=== PATIENT | female | born 1950 | race Caucasian/White ===

== ENCOUNTER 2017-04-17 07:17 | Day surgery (SDC) | payer MEDICAID ==
[2017-04-17 08:20] VITALS: BMI 26.7
[2017-04-17] MEDS ORDERED: Propofol 10 mg/ml Inj (20 ML) ONE (09:51)
[2017-04-17] MEDS ORDERED: Lactated Ringer's 500 ML IV ONE (09:52)
[2017-04-17 10:00] VITALS: O2SAT 100
[2017-04-17 11:56] VITALS: TEMP 97.3
[2017-04-17 12:04] VITALS: BP 147/60; PULSE 59; RESP 18
== END 2017-04-17 11:30 | disposition home or self-care (01) ==
LOC: C.ENDO 07:17
PROVIDERS: ATTEND Internal Medicine Gastroenterology
DX: K63.5 Polyp of colon (principal); K57.90 Diverticulosis of intestine, part unspecified, without perforation or abscess without bleeding; K64.8 Other hemorrhoids
CPT/HCPCS: 45388; 88305; J2704; J7120

== ENCOUNTER 2018-02-10 01:59 | Inpatient (IN) | payer MEDICAID ==
[2018-02-10 02:10] VITALS: BMI 31.8
[2018-02-10] MEDS ORDERED: Aspirin 325 mg EC Tablets PO STA (02:10)
--- NOTE | 2018-02-10 02:10 | C.PDOC ---
History Of Present Illness The patient is brought to the ED by ambulance for evaluation of mid-sternal chest pain which had sudden onset around 1 hour prior to arrival. Patient was given 974mg Aspirin and three Nitroglycerin sprays in field with some improvement. Patient states pain is non-radiating and denies fever, chills, anxiety. Time Seen by Provider: 02/10/18 02:09 History/Exam Limitations: no limitations Onset/Duration Of Symptoms: Mins (60), Sudden Onset Current Symptoms Are (Timing): Still Present Severity: Moderate Pain Scale Rating Of: 4 Quality: Dull, Aching, "Pain" Associated Symptoms: denies: Nausea Modifying Factors: None Exacerbating Factors: None Alleviating Factors: None Recent travel outside of the [place]: No Additional History Per: Patient, Family Past Medical History Reviewed: Historical Data, Nursing Documentation, Vital Signs Vital Signs: Last Vital Signs Temp 97.6 F 02/10/18 02:08 Pulse 59 L 02/10/18 02:24 Resp 18 02/10/18 02:09 BP 145/75 02/10/18 02:24 Pulse Ox 97 02/10/18 03:55 - Medical History PMH: Depression, HTN, Hyperthyroidism, TIA (2009 ) Denies: Chronic Kidney Disease Surgical History: No Surg Hx Family History: States: No Known Family Hx - Social History Hx Alcohol Use: No Hx Substance Use: No - Immunization History Hx Tetanus Toxoid Vaccination: No Hx Influenza Vaccination: No Hx Pneumococcal Vaccination: No Review Of Systems Constitutional: Negative for: Fever, Chills Cardiovascular: Positive for: Chest Pain (mid-sternal ) Respiratory: Negative for: Cough, Shortness of Breath Gastrointestinal: Negative for: Nausea, Vomiting, Abdominal Pain, Diarrhea Skin: Negative for: Rash, Lesions, Jaundice, Bruising Neurological: Negative for: Weakness, Numbness Psych: Negative for: Anxiety Physical Exam - Physical Exam Appears: Non-toxic, No Acute Distress Skin: Warm, Dry Head: Normacephalic Eye(s): bilateral: Normal Inspection Oral Mucosa: Moist Neck: Supple Chest: Symmetrical, No Deformity, No Tenderness Cardiovascular: Rhythm Regular, No Murmur Respiratory: No Rales, No Rhonchi, No Wheezing Gastrointestinal/Abdominal: Soft, Tenderness, No Distention, No Guarding Back: Normal Inspection Extremity: Normal ROM, Capillary Refill (less than 2 seconds ) Extremity: Bilateral: Atraumatic Pulses: Left Dorsalis Pedis: Normal, Right Dorsalis Pedis: Normal Neurological/Psych: Oriented x3 Gait: Steady ED Course And Treatment - Laboratory Results Result Diagrams: 02/10/18 02:33 18 02:33 ECG: Interpreted By Me, Viewed By Me ECG Rhythm: Sinus Rhythm (56), Nonspecific Changes O2 Sat by Pulse Oximetry: 97 (on RA ) Pulse Ox Interpretation: Normal - Radiology CXR: Interpreted by Me, Viewed By Me CXR Interpretation: No: Infiltrates, Fracture, Pnemothorax Progress Note: Bloodwork, urinalysis, CT Abdomen/Pelvis, CXR and EKG ordered and reviewed. Aspirin PO administered. Disposition Discussed With Dr.: Nain Golden Comment: accepted the pt on his service and took over the care at 6:15 AM Doctor Will See Patient In The: ED Counseled Patient/Family Regarding: Studies Performed, Diagnosis - Disposition Disposition: HOSPITALIZED Disposition Time: 02:10 Condition: FAIR - POA Present On Arrival: Poor Glycemic Control - Clinical Impression Clinical Impression: Chest pain - Scribe Statement The provider has reviewed the documentation as recorded by the Scribe (Elvi Lee) Provider Attestation: All medical record entries made by the Scribe were at my direction and personally dictated by me. I have reviewed the chart and agree that the record accurately reflects my personal performance of the history, physical exam, medical decision making, and the department course for this patient. I have also personally directed, reviewed, and agree with the discharge instructions and disposition. Decision To Admit - Pt Status Changed To: Hospital Disposition Of: Inpatient - Admit Certification Admit to Inpatient:: After my assessment, the patient will require hospitalization for at least two midnights. This is because of the severity of symptoms shown, intensity of services needed, and/or the medical risk in this patient being treated as an outpatient. - InPatient: Physician Admission Certification: I certify that this patient requires 2 or more midnights of care for the following reason:: After my assessment, the patient will require hospitalization for at least two midnights. This is because of the severity of symptoms shown, intensity of services needed, and/or the medical risk in this patient being treated as an outpatient. - . Bed Request Type: Telemetry Admitting Physician: Nain Golden Patient Diagnosis: Chest pain
[2018-02-10 02:37] LABS: BASO # 0.1 K/uL (0.0-0.2); BASO % 0.9 % (0.0-2.0); EOS # 0.3 K/uL (0.0-0.7); EOS % 3.4 % (0.0-4.0); HEMOGLOBIN 12.5 g/dL (11.0-16.0); LYMPH # 1.8 K/uL (1.0-4.3); LYMPH % 23.9 % (20.0-40.0); MEAN CELL VOLUME 86.4 fL (81.0-99.0); MEAN CORPUSCULAR HEMOGLOBIN 29.8 pg (27.0-31.0); MEAN CORPUSCULAR HGB CONC 34.4 g/dL (33.0-37.0); MEAN PLATELET VOLUME 7.4 fL (7.2-11.7); MONO # 0.5 K/uL (0.0-0.8); MONO % 6.1 % (0.0-10.0); NEUT # 5.1 K/uL (1.8-7.0); NEUT % 65.7 % (50.0-75.0); RBC 4.2 Mil/uL (3.80-5.20); RED CELL DISTRIBUTION WIDTH 13.7 % (11.5-14.5); WHITE BLOOD COUNT 7.7 K/uL (4.8-10.8)
[2018-02-10 02:46] LABS: INR 1.1; PROTHROMBIN TIME 12.8 SECONDS (9.7-12.2)
[2018-02-10 02:48] LABS: CALCIUM 9.1 mg/dl (8.6-10.4); GFR AFRICAN-AMERICAN > 60; GFR NON-AFRICAN AMERICAN > 60
[2018-02-10 02:53] LABS: ALB/GLOB RATIO 0.9 (1.0-2.1); ALT/SGPT 37 U/L (9-52); AST/SGOT 114 U/L (14-36); BLOOD UREA NITROGEN 16 mg/dL (7-17)
[2018-02-10 03:01] LABS: B-TYPE NATRIURETIC PEPTIDE 148 pg/mL (0-900)
[2018-02-10 03:35] LABS: LIPASE 8795 U/L (23-300)
[2018-02-10] MEDS ORDERED: Iodixanol 320 MG/ML 100 ML BOTTLE IV ONE (04:13)
[2018-02-10 04:21] LABS: URINE BILIRUBIN NEGATIVE (NEGATIVE); URINE BLOOD NEGATIVE (NEGATIVE); URINE CLARITY Clear (Clear); URINE COLOR Yellow (YELLOW); URINE GLUCOSE (UA) NORMAL (Normal); URINE LEUKOCYTE ESTERASE NEG Leu/uL (Negative); URINE PROTEIN NEGATIVE (NEGATIVE); URINE UROBILINOGEN NORMAL mg/dL (0.2-1.0)
--- NOTE | 2018-02-10 06:02 | CT ---
EXAM: CT Abdomen and Pelvis With Intravenous Contrast CLINICAL HISTORY: 67 years old, female; Pain; Abdominal pain; Generalized; Additional info: Abd pain, lipase [id number] TECHNIQUE: Axial computed tomography images of the abdomen and pelvis with intravenous contrast. All CT scans at this facility use one or more dose reduction techniques, viz.: automated exposure control; ma/kV adjustment per patient size (including targeted exams where dose is matched to indication; i.e. head); or iterative reconstruction technique. Coronal and sagittal reformatted images were created and reviewed. CONTRAST: 100 mL of VISIPAQUE administered intravenously. COMPARISON: No relevant prior studies available. FINDINGS: Limitations: Motion artifact - mild. Lung bases: Lungs: RML calcified granuloma. Mediastinum: Small hiatal hernia. ABDOMEN: Liver: Fatty infiltration. < 0.5 cm lesion. Gallbladder and bile ducts: No calcified stones. No ductal dilation. Pancreas: No ductal dilation. No mass. Spleen: No splenomegaly. Adrenals: No mass. Kidneys and ureters: Few too small to characterize lesions within kidneys. No hydronephrosis. Stomach and bowel: No definite mural thickening. No obstruction. PELVIS: Appendix: Normal caliber. No inflammation. Bladder: Incomplete distention, limiting evaluation. Apparent mild bladder wall thickening. Apparent minimal haziness about bladder. Reproductive: Coarse calcification within uterus, likely fibroid. ABDOMEN and PELVIS: Intraperitoneal space: No significant fluid collection. No free air. Bones/joints: Early degenerative changes of spine. No acute fracture. Soft tissues: Tiny umbilical hernia containing fat. Vasculature: Minimal atherosclerotic disease. No aneurysm. Lymph nodes: No pathologically enlarged lymph nodes. IMPRESSION: 1. Possible cystitis. Correlate with urinalysis. 2. Liver lesion. For patients with low to average risk of malignancy, no further follow-up is necessary. For patients with high risk of malignancy (known malignancy that can metastasize or other risk factors), recommend follow-up abdominal CT or MR in 6 months. 3. Incidental/non-acute findings are described above.
[2018-02-10] MEDS ORDERED: Lactated Ringer's 1,000 ML IV ONE (06:28)
[2018-02-10 07:25] LABS: BARBITURATES, UR NEGATIVE (NEGATIVE); BENZODIAZEPINES, UR NEGATIVE (NEGATIVE); OPIATES, UR NEGATIVE (NEGATIVE); PHENCYCLIDINE, UR NEGATIVE (NEGATIVE)
[2018-02-10] MEDS ORDERED: Lactated Ringer's 1,000 ML IV SCH ×2 (07:30→08:43)
--- NOTE | 2018-02-10 08:31 | RAD ---
Chest x-ray single frontal view History: Chest pain. Comparison: None available. Findings Mild venous congestion. Small nodular densities at the lung bases may represent vessels on end. Tortuous aorta. Calcification at the aortic knob. Degenerative changes in the spine and shoulders. Impression: Mild venous congestion. Small nodular densities at the lung bases may represent vessels on end. Tortuous aorta. Calcification at the aortic knob.
[2018-02-10] MEDS ORDERED: Levothyroxine 100 MCG TAB PO SCH ×2 (08:55→09:30)
[2018-02-10] MEDS: Enoxaparin 40 mg Syringe SC SCH (09:46)
[2018-02-10 09:49] LABS: CK-MB 0.47 ng/mL (0.0-3.38)
[2018-02-10] MEDS ORDERED: Levothyroxine 150 MCG TAB PO SCH (10:00)
[2018-02-10] MEDS: Lactated Ringer's 1,000 ML IV SCH ×2 (13:15→21:21)
[2018-02-10 15:47] LABS: CK-MB 0.39 ng/mL (0.0-3.38)
[2018-02-10] MEDS ORDERED: Levothyroxine 75 MCG TAB PO SCH (15:57)
--- NOTE | 2018-02-10 16:22 | CP.PCM.HP ---
<IanFariba Juliane - Last Filed: 02/10/18 16:11> History of Present Illness - History of Present Illness History of Present Illness: CC: Chest pain HPI: Patient is a 67 year old female with past medical history of Hypertension, Hypothyroidism, TIA (2009), and left Rotator cuff tear who presents today for chest pain. Patient says she woke up at 1 am with squeezing chest pain in the center of her chest which she rates more than 10/10. Patient took 2 Jesus Aspirins with no relief. Patient also experienced palpitations, diaphoresis, shortness of breath, nausea, and light headedness. Patient's daughter whom she lived with called 911 because the pain was no resolving. Patient had an episode similar to this in 2014 while on vacation in [place] and [facility] and was hospitalized. She does not remember and echo or stress test being done, and she did not need a cardiac cath. Patient had one more episode similar to this about a year ago which resolved with Aspirin. Patient has seen Dr. Martinez (cardiology) about 1 year ago and was not told of any problems. Patient admits to mild generalized abdominal discomfort. Patient has also been having some left shoulder pain due to a fall in November and was told by Dr. Hector Phillips ( ortho) that she would need surgical intervention. Patient is planning to get a second opinion. Otherwise patient denies any cough, fevers, chills, vision changes, throat pain, diarrhea, constipation, hematuria, dysuria, hematochezia. Patient has denies recent travel or sick contacts. PMD: Dr. Meza Cardio: Dr. Martinez Full Code, proxy: Sera Cavanaugh (daughter) : [phone] PMHx: Hypertension, Hypothyroidism, TIA (2010), and left Rotator cuff tear Psur c-sections, b/l lumpectomy in 1985/1986- benign Famhx: Mom: breast CA at 53 Social: denies tobacco or drugs, drank socially 20 years ago lives with daughter and her and 3 kids retired nanny Home meds: Amlodipine 10mg daily, ASA 81mg daily, Losartan 50mg 3x/week, Levothyroxine 100mcg Present on Admission - Present on Admission Any Indicators Present on Admission: No History of DVT/PE: No History of Uncontrolled Diabetes: No Urinary Catheter: No Decubitus Ulcer Present: No Review of Systems - Constitutional Constitutional: absent: Chills, Fatigue, Fever - EENT Eyes: absent: Blurred Vision - Cardiovascular Cardiovascular: Chest Pain, Dyspnea, Lightheadedness, Palpitations. absent: Leg Edema - Respiratory Respiratory: absent: Cough, Wheezing, Chest Congestion - Gastrointestinal Gastrointestinal: Abdominal Pain. absent: Constipation, Diarrhea, Nausea, Vomiting - Genitourinary Genitourinary: absent: Difficulty Urinating, Dysuria, Hematuria - Musculoskeletal Musculoskeletal: absent: Numbness, Stiffness, Tingling - Integumentary Integumentary: absent: New Lesions, Rash - Neurological Neurological: absent: Syncope, Tingling - Hematologic/Lymphatic Hematologic: absent: Easy Bleeding, Easy Bruising Past Patient History - Infectious Disease Hx of Infectious Diseases: None - Past Social History Smoking Status: Never Smoked - CARDIAC Hx Hypertension: Yes - PULMONARY Hx Respiratory Disorders: No - NEUROLOGICAL Hx Transient Ischemic Attacks (TIA): Yes (2009 ) - HEENT Hx HEENT Problems: Yes Hx Cataracts: Yes (CATARACT REMOVAL RIGHT EYE 2015 ) - RENAL Hx Chronic Kidney Disease: No - ENDOCRINE/METABOLIC Hx Hyperthyroidism: Yes - HEMATOLOGICAL/ONCOLOGICAL Hx Blood Disorders: No - INTEGUMENTARY Hx Dermatological Problems: No - MUSCULOSKELETAL/RHEUMATOLOGICAL Hx Musculoskeletal Disorders: Yes Hx Back Pain: Yes Other/Comment: RIGHT SIDED WEAKNESS POST TIA - GASTROINTESTINAL Hx Gastrointestinal Disorders: Yes Hx Gastroesophageal Reflux: Yes Other/Comment: CONSTIPATION - GENITOURINARY/GYNECOLOGICAL Hx Genitourinary Disorders: No - PSYCHIATRIC Hx Depression: Yes Hx Substance Use: No - SURGICAL HISTORY Hx Surgeries: Yes Hx Cataract Extraction: Yes (RIGHT EYE 2015 ) Hx Section: Yes Other/Comment: bilateral breast lumpectomy in 1985 and 1986 - ANESTHESIA Hx Anesthesia: Yes Hx Anesthesia Reactions: No Hx Malignant Hyperthermia: No Meds Allergies/Adverse Reactions: Allergies Allergy/AdvReac Type Severity Reaction Status Date / Time No Known Allergies Allergy Unverified 02/10/18 02:13 Physical Exam - Constitutional Appears: Non-toxic, No Acute Distress - Head Exam Head Exam: ATRAUMATIC, NORMAL INSPECTION, NORMOCEPHALIC - Eye Exam Eye Exam: EOMI, Normal appearance - ENT Exam ENT Exam: Mucous Membranes Moist - Respiratory Exam Respiratory Exam: Clear to Auscultation Bilateral, NORMAL BREATHING PATTERN. absent: Rales, Rhonchi, Wheezes, Respiratory Distress - Cardiovascular Exam Cardiovascular Exam: REGULAR RHYTHM, RRR, +S1, +S2 - GI/Abdominal Exam GI & Abdominal Exam: Normal Bowel Sounds, Soft. absent: Tenderness - Extremities Exam Extremities exam: Positive for: normal inspection. Negative for: pedal edema - Back Exam Back exam: NORMAL INSPECTION - Neurological Exam Neurological exam: Alert, Oriented x3 - Psychiatric Exam Psychiatric exam: Normal Affect, Normal Mood - Skin Skin Exam: Intact, Normal Color, Warm Results - Vital Signs Recent Vital Signs: Last Vital Signs Temp 97.8 F 02/10/18 07:45 Pulse 59 L 02/10/18 12:00 Resp 18 02/10/18 07:45 BP 157/89 H 02/10/18 09:45 Pulse Ox 98 02/10/18 07:45 - Labs Result Diagrams: 02/10/18 02:33 02/10/18 02:33 Labs: Laboratory Results - last 24 hr 02/10/18 02/10/18 02/10/18 02:11 02:33 02:33 WBC 7.7 RBC 4.20 Hgb 12.5 Hct 36.3 MCV 86.4 MCH 29.8 MCHC 34.4 RDW 13.7 Plt Count 283 MPV 7.4 Neut % (Auto) 65.7 Lymph % (Auto) 23.9 Will % (Auto) 6.1 Eos % (Auto) 3.4 Baso % (Auto) 0.9 Neut # (Auto) 5.1 Lymph # (Auto) 1.8 Will # (Auto) 0.5 Eos # (Auto) 0.3 Baso # (Auto) 0.1 PT 12.8 H INR 1.1 APTT 36 H Sodium Potassium Chloride Carbon Dioxide Anion Gap BUN Creatinine Est GFR ( Amer) Est GFR (Non-Af Amer) Random Glucose Hemoglobin A1c Calcium Total Bilirubin AST ALT Alkaline Phosphatase Total Creatine Kinase CK-MB (Mass) Troponin I NT-Pro-B Natriuret Pep Total Protein Albumin Globulin Albumin/Globulin Ratio Lipase Free T4 TSH 3rd Generation Urine Color Yellow Urine Clarity Clear Urine pH 8.0 Ur Specific [place] 1.012 Urine Protein Negative Urine Glucose (UA) Normal Urine Ketones Negative Urine Blood Negative Urine Nitrate Negative Urine Bilirubin Negative Urine Urobilinogen Normal Ur Leukocyte Esterase Neg Urine WBC (Auto) < 1 Urine RBC (Auto) 1 Salicylates Urine Opiates Screen Urine Methadone Screen Ur Barbiturates Screen Ur Phencyclidine Scrn Ur Amphetamines Screen U Benzodiazepines Scrn U Oth Cocaine Metabols U Cannabinoids Screen 02/10/18 02/10/18 02/10/18 02:33 02:54 03:59 WBC RBC Hgb Hct MCV MCH MCHC RDW Plt Count MPV Neut % (Auto) Lymph % (Auto) Will % (Auto) Eos % (Auto) Baso % (Auto) Neut # (Auto) Lymph # (Auto) Will # (Auto) Eos # (Auto) Baso # (Auto) PT INR APTT Sodium 142 Potassium 4.5 Chloride 102 Carbon Dioxide 27 Anion Gap 18 BUN 16 Creatinine 0.6 L Est GFR ( Amer) > 60 Est GFR (Non-Af Amer) > 60 Random Glucose 109 H Hemoglobin A1c Calcium 9.1 Total Bilirubin 1.1 AST 114 H ALT 37 Alkaline Phosphatase 97 Total Creatine Kinase CK-MB (Mass) Troponin I 0.0240 NT-Pro-B Natriuret Pep 148 Total Protein 8.4 H Albumin 4.0 Globulin 4.4 H Albumin/Globulin Ratio 0.9 L Lipase 8795 H Free T4 TSH 3rd Generation 0.29 L Urine Color Urine Clarity Urine pH Ur Specific [place] Urine Protein Urine Glucose (UA) Urine Ketones Urine Blood Urine Nitrate Urine Bilirubin Urine Urobilinogen Ur Leukocyte Esterase Urine WBC (Auto) Urine RBC (Auto) Salicylates 7.5 Urine Opiates Screen Urine Methadone Screen Ur Barbiturates Screen Ur Phencyclidine Scrn Ur Amphetamines Screen U Benzodiazepines Scrn U Oth Cocaine Metabols U Cannabinoids Screen 02/10/18 02/10/18 02/10/18 06:58 09:14 12:16 WBC RBC Hgb Hct MCV MCH MCHC RDW Plt Count MPV Neut % (Auto) Lymph % (Auto) Will % (Auto) Eos % (Auto) Baso % (Auto) Neut # (Auto) Lymph # (Auto) Will # (Auto) Eos # (Auto) Baso # (Auto) PT INR APTT Sodium Potassium Chloride Carbon Dioxide Anion Gap BUN Creatinine Est GFR ( Amer) Est GFR (Non-Af Amer) Random Glucose Hemoglobin A1c 5.6 Calcium Total Bilirubin AST ALT Alkaline Phosphatase Total Creatine Kinase 77 CK-MB (Mass) 0.47 Troponin I < 0.0120 NT-Pro-B Natriuret Pep Total Protein Albumin Globulin Albumin/Globulin Ratio Lipase Free T4 TSH 3rd Generation Urine Color Urine Clarity Urine pH Ur Specific [place] Urine Protein Urine Glucose (UA) Urine Ketones Urine Blood Urine Nitrate Urine Bilirubin Urine Urobilinogen Ur Leukocyte Esterase Urine WBC (Auto) Urine RBC (Auto) Salicylates Urine Opiates Screen Negative Urine Methadone Screen Negative Ur Barbiturates Screen Negative Ur Phencyclidine Scrn Negative Ur Amphetamines Screen Negative U Benzodiazepines Scrn Negative U Oth Cocaine Metabols Negative U Cannabinoids Screen Negative 02/10/18 02/10/18 12:18 14:59 WBC RBC Hgb Hct MCV MCH MCHC RDW Plt Count MPV Neut % (Auto) Lymph % (Auto) Will % (Auto) Eos % (Auto) Baso % (Auto) Neut # (Auto) Lymph # (Auto) Will # (Auto) Eos # (Auto) Baso # (Auto) PT INR APTT Sodium Potassium Chloride Carbon Dioxide Anion Gap BUN Creatinine Est GFR ( Amer) Est GFR (Non-Af Amer) Random Glucose Hemoglobin A1c Calcium Total Bilirubin AST ALT Alkaline Phosphatase Total Creatine Kinase 70 CK-MB (Mass) 0.39 Troponin I < 0.0120 NT-Pro-B Natriuret Pep Total Protein Albumin Globulin Albumin/Globulin Ratio Lipase Free T4 2.58 H TSH 3rd Generation Urine Color Urine Clarity Urine pH Ur Specific [place] Urine Protein Urine Glucose (UA) Urine Ketones Urine Blood Urine Nitrate Urine Bilirubin Urine Urobilinogen Ur Leukocyte Esterase Urine WBC (Auto) Urine RBC (Auto) Salicylates Urine Opiates Screen Urine Methadone Screen Ur Barbiturates Screen Ur Phencyclidine Scrn Ur Amphetamines Screen U Benzodiazepines Scrn U Oth Cocaine Metabols U Cannabinoids Screen Assessment & Plan - Assessment and Plan (Free Text) Assessment: Atypical Chest Pain Admit to tele f/u MONIQUE and EKGs Troponin I: .0240 Repeat Troponin: < .0120 EKG: NSR at 56 bpm f/u lipid panel and HgA1C Cardio consulted, Dr. Cuellar, help appreciated Abdominal Pain 2/2 pancreatitis Abd/ pelvis CT: possible cystitis, correlate with urinalysis Liver lesion. for patients with low to average risk of malignancy, no further follow up is necessary. For patients with high risk malignancy, recommend follow up CT or MR in 6 months LR at 250 cc/hr for 1 L then 150cc/hr keep NPO f/u IGG subclass 4 to check for autoimmune cause Hepatic Lesion due to fam hx of breast cancer and b/l lumpectomies, recommend repeat CT/ MRI of abd and pelvis in 6 mo f/u HIV and Hep panel HTN continue home meds: Losartan 50mg po daily and Norvasc 10 mg po daily continue ASA 81 mg po daily Hypothyroidism TSH: .29, Free T4: 2.58 Change Synthroid from 100mcg po daily to 75mcg po daily Prophylaxis No GI prophylaxis indicated DVT risk 3 based on age and bmi -Lovenox 40mg sc daily NPO Discussed with Dr. Lee <Wili Lee - Last Filed: 02/10/18 19:11> Results - Vital Signs Recent Vital Signs: Last Vital Signs Temp 98.7 F 02/10/18 15:00 Pulse 89 02/10/18 16:00 Resp 20 02/10/18 15:00 BP 134/79 02/10/18 15:00 Pulse Ox 97 02/10/18 15:00 - Labs Result Diagrams: 02/10/18 02:33 02/10/18 02:33 Labs: Laboratory Results - last 24 hr 02/10/18 02/10/18 02/10/18 02:11 02:33 02:33 WBC 7.7 RBC 4.20 Hgb 12.5 Hct 36.3 MCV 86.4 MCH 29.8 MCHC 34.4 RDW 13.7 Plt Count 283 MPV 7.4 Neut % (Auto) 65.7 Lymph % (Auto) 23.9 Will % (Auto) 6.1 Eos % (Auto) 3.4 Baso % (Auto) 0.9 Neut # (Auto) 5.1 Lymph # (Auto) 1.8 Will # (Auto) 0.5 Eos # (Auto) 0.3 Baso # (Auto) 0.1 PT 12.8 H INR 1.1 APTT 36 H Sodium Potassium Chloride Carbon Dioxide Anion Gap BUN Creatinine Est GFR ( Amer) Est GFR (Non-Af Amer) Random Glucose Hemoglobin A1c Calcium Total Bilirubin AST ALT Alkaline Phosphatase Total Creatine Kinase CK-MB (Mass) Troponin I NT-Pro-B Natriuret Pep Total Protein Albumin Globulin Albumin/Globulin Ratio Triglycerides Cholesterol LDL Cholesterol Direct HDL Cholesterol Lipase Free T4 TSH 3rd Generation Urine Color Yellow Urine Clarity Clear Urine pH 8.0 Ur Specific [place] 1.012 Urine Protein Negative Urine Glucose (UA) Normal Urine Ketones Negative Urine Blood Negative Urine Nitrate Negative Urine Bilirubin Negative Urine Urobilinogen Normal Ur Leukocyte Esterase Neg Urine WBC (Auto) < 1 Urine RBC (Auto) 1 Salicylates Urine Opiates Screen Urine Methadone Screen Ur Barbiturates Screen Ur Phencyclidine Scrn Ur Amphetamines Screen U Benzodiazepines Scrn U Oth Cocaine Metabols U Cannabinoids Screen Hepatitis A IgM Ab Hep Bs Antigen Hep B Core IgM Ab Hepatitis C Antibody 02/10/18 02/10/18 02/10/18 02:33 02:54 03:59 WBC RBC Hgb Hct MCV MCH MCHC RDW Plt Count MPV Neut % (Auto) Lymph % (Auto) Will % (Auto) Eos % (Auto) Baso % (Auto) Neut # (Auto) Lymph # (Auto) Will # (Auto) Eos # (Auto) Baso # (Auto) PT INR APTT Sodium 142 Potassium 4.5 Chloride 102 Carbon Dioxide 27 Anion Gap 18 BUN 16 Creatinine 0.6 L Est GFR ( Amer) > 60 Est GFR (Non-Af Amer) > 60 Random Glucose 109 H Hemoglobin A1c Calcium 9.1 Total Bilirubin 1.1 AST 114 H ALT 37 Alkaline Phosphatase 97 Total Creatine Kinase CK-MB (Mass) Troponin I 0.0240 NT-Pro-B Natriuret Pep 148 Total Protein 8.4 H Albumin 4.0 Globulin 4.4 H Albumin/Globulin Ratio 0.9 L Triglycerides Cholesterol LDL Cholesterol Direct HDL Cholesterol Lipase 8795 H Free T4 TSH 3rd Generation 0.29 L Urine Color Urine Clarity Urine pH Ur Specific [place] Urine Protein Urine Glucose (UA) Urine Ketones Urine Blood Urine Nitrate Urine Bilirubin Urine Urobilinogen Ur Leukocyte Esterase Urine WBC (Auto) Urine RBC (Auto) Salicylates 7.5 Urine Opiates Screen Urine Methadone Screen Ur Barbiturates Screen Ur Phencyclidine Scrn Ur Amphetamines Screen U Benzodiazepines Scrn U Oth Cocaine Metabols U Cannabinoids Screen Hepatitis A IgM Ab Hep Bs Antigen Hep B Core IgM Ab Hepatitis C Antibody 02/10/18 02/10/18 02/10/18 06:58 09:14 12:16 WBC RBC Hgb Hct MCV MCH MCHC RDW Plt Count MPV Neut % (Auto) Lymph % (Auto) Will % (Auto) Eos % (Auto) Baso % (Auto) Neut # (Auto) Lymph # (Auto) Will # (Auto) Eos # (Auto) Baso # (Auto) PT INR APTT Sodium Potassium Chloride Carbon Dioxide Anion Gap BUN Creatinine Est GFR ( Amer) Est GFR (Non-Af Amer) Random Glucose Hemoglobin A1c 5.6 Calcium Total Bilirubin AST ALT Alkaline Phosphatase Total Creatine Kinase 77 CK-MB (Mass) 0.47 Troponin I < 0.0120 NT-Pro-B Natriuret Pep Total Protein Albumin Globulin Albumin/Globulin Ratio Triglycerides Cholesterol LDL Cholesterol Direct HDL Cholesterol Lipase Free T4 TSH 3rd Generation Urine Color Urine Clarity Urine pH Ur Specific [place] Urine Protein Urine Glucose (UA) Urine Ketones Urine Blood Urine Nitrate Urine Bilirubin Urine Urobilinogen Ur Leukocyte Esterase Urine WBC (Auto) Urine RBC (Auto) Salicylates Urine Opiates Screen Negative Urine Methadone Screen Negative Ur Barbiturates Screen Negative Ur Phencyclidine Scrn Negative Ur Amphetamines Screen Negative U Benzodiazepines Scrn Negative U Oth Cocaine Metabols Negative U Cannabinoids Screen Negative Hepatitis A IgM Ab Hep Bs Antigen Hep B Core IgM Ab Hepatitis C Antibody 02/10/18 02/10/18 02/10/18 12:18 14:59 16:48 WBC RBC Hgb Hct MCV MCH MCHC RDW Plt Count MPV Neut % (Auto) Lymph % (Auto) Will % (Auto) Eos % (Auto) Baso % (Auto) Neut # (Auto) Lymph # (Auto) Will # (Auto) Eos # (Auto) Baso # (Auto) PT INR APTT Sodium Potassium Chloride Carbon Dioxide Anion Gap BUN Creatinine Est GFR ( Amer) Est GFR (Non-Af Amer) Random Glucose Hemoglobin A1c Calcium Total Bilirubin AST ALT Alkaline Phosphatase Total Creatine Kinase 70 CK-MB (Mass) 0.39 Troponin I < 0.0120 NT-Pro-B Natriuret Pep Total Protein Albumin Globulin Albumin/Globulin Ratio Triglycerides Cholesterol LDL Cholesterol Direct HDL Cholesterol Lipase Free T4 2.58 H TSH 3rd Generation Urine Color Urine Clarity Urine pH Ur Specific [place] Urine Protein Urine Glucose (UA) Urine Ketones Urine Blood Urine Nitrate Urine Bilirubin Urine Urobilinogen Ur Leukocyte Esterase Urine WBC (Auto) Urine RBC (Auto) Salicylates Urine Opiates Screen Urine Methadone Screen Ur Barbiturates Screen Ur Phencyclidine Scrn Ur Amphetamines Screen U Benzodiazepines Scrn U Oth Cocaine Metabols U Cannabinoids Screen Hepatitis A IgM Ab Negative Hep Bs Antigen Negative Hep B Core IgM Ab Negative Hepatitis C Antibody Negative 02/10/18 16:48 WBC RBC Hgb Hct MCV MCH MCHC RDW Plt Count MPV Neut % (Auto) Lymph % (Auto) Will % (Auto) Eos % (Auto) Baso % (Auto) Neut # (Auto) Lymph # (Auto) Will # (Auto) Eos # (Auto) Baso # (Auto) PT INR APTT Sodium Potassium Chloride Carbon Dioxide Anion Gap BUN Creatinine Est GFR ( Amer) Est GFR (Non-Af Amer) Random Glucose Hemoglobin A1c Calcium Total Bilirubin AST ALT Alkaline Phosphatase Total Creatine Kinase CK-MB (Mass) Troponin I NT-Pro-B Natriuret Pep Total Protein Albumin Globulin Albumin/Globulin Ratio Triglycerides 57 Cholesterol 167 LDL Cholesterol Direct 103 HDL Cholesterol 43 Lipase Free T4 TSH 3rd Generation Urine Color Urine Clarity Urine pH Ur Specific [place] Urine Protein Urine Glucose (UA) Urine Ketones Urine Blood Urine Nitrate Urine Bilirubin Urine Urobilinogen Ur Leukocyte Esterase Urine WBC (Auto) Urine RBC (Auto) Salicylates Urine Opiates Screen Urine Methadone Screen Ur Barbiturates Screen Ur Phencyclidine Scrn Ur Amphetamines Screen U Benzodiazepines Scrn U Oth Cocaine Metabols U Cannabinoids Screen Hepatitis A IgM Ab Hep Bs Antigen Hep B Core IgM Ab Hepatitis C Antibody Attending/Attestation - Attestation I have personally seen and examined this patient.: Yes I have fully participated in the care of the patient.: Yes I have reviewed all pertinent clinical information: Yes Notes (Text): 02/10/18 19:08 Patient was seen and examined at 9 AM History, Physical, Assessment and Plan and orders were gone over with the resident. Wili Lee D.O.
[2018-02-10 17:12] LABS: HDL CHOLESTEROL 43 mg/dL (30-70)
[2018-02-10 17:23] LABS: LDL CHOLESTEROL 103 mg/dL (0-129)
[2018-02-10 17:43] LABS: HEPATITIS B SURFACE AG Negative (NEGATIVE)
[2018-02-10 17:49] LABS: HEPATITIS A IGM NEGATIVE (NEGATIVE); HEPATITIS B CORE AB NEGATIVE (NEGATIVE)
[2018-02-10 18:00] LABS: HEPATITIS C ANTIBODY NEGATIVE (NEGATIVE)
[2018-02-11] MEDS: Lactated Ringer's 1,000 ML IV SCH ×4 (00:30→13:00)
--- NOTE | 2018-02-11 02:16 | CON ---
DATE: REASON FOR CONSULTATION: Chest pain.HISTORY OF PRESENT ILLNESS: The patient is a 67-year-old female, originally from , who has no known prior cardiac history, who was admitted because of midsternal chest pain, that is not radiating and is steady. The patient has also experienced nausea. The patient is unaware of any prior history of pancreatitis or cholecystitis in the past. The patient was found to have a lipase level of 8795. SOCIAL HISTORY: Nonsmoker and nondrinker. MEDICATIONS: Aspirin 81 mg once a day, Cozaar 50 mg once a day, Lactated Ringer's at 250 mL an hour, Lovenox 40 mg subcutaneous once a day, amlodipine 10 mg once a day, Synthroid 75 mcg once a day. PHYSICAL EXAMINATION: GENERAL: The patient is an elderly female, who does not appear to be in acute distress. VITAL SIGNS: Blood pressure 157/89, heart rate 60, temperature 97.8, and respirations 18. HEENT: Normocephalic. CHEST: Clear. HEART: S1 and S2 regular. ABDOMEN: Soft. EXTREMITIES: No edema. LABORATORY DATA: CBC is entirely within normal limits. INR is 1.1, PT is 12.8, PTT is 36. SMA-7, sodium 142, potassium 4.5, chloride 102, CO2 of 28, glucose 109, BUN 16, creatinine 0.6. Three sets of troponins are negative. TSH level is 0.29 and T4 is elevated 2.59. ProBNP is within normal limits. Urine drug screen is negative. Abdomen and pelvis CT scan, possible cystitis, liver lesion. Recommend followup abdominal CT scan or MRI in 6 months. Fatty liver, less than 3.5 cm lesion. Gallbladder and bile duct, no ductal dilation and no calcified stones. Pancreas, no ductal dilation and no mass. EKG with sinus rhythm with nonspecific acute T-wave changes. Preliminary echo reviewed revealed normal left ventricular ejection fraction. ASSESSMENT: 1. Atypical chest pain, myocardial infraction ruled out. 2. Consider acute pancreatitis. 3. Small 0.5 cm liver lesion. 4. History of diverticulosis on a recent colonoscopy with appendicular orifice polyp. RECOMMENDATIONS: Continue current aspirin, Cozaar, subcutaneous Lovenox, Synthroid, and Norvasc. Obtain serum lipid profile. Patrick Cuellar MD
[2018-02-11] MEDS ORDERED: Levothyroxine 100 MCG TAB PO SCH (06:30)
[2018-02-11 08:09] LABS: BASO % 0.8 % (0.0-2.0); EOS # 0.2 K/uL (0.0-0.7); EOS % 4.4 % (0.0-4.0); HEMOGLOBIN 12.2 g/dL (11.0-16.0); LYMPH # 1.8 K/uL (1.0-4.3); LYMPH % 44.3 % (20.0-40.0); MEAN CELL VOLUME 85.4 fL (81.0-99.0); MEAN CORPUSCULAR HEMOGLOBIN 29.1 pg (27.0-31.0); MEAN CORPUSCULAR HGB CONC 34.1 g/dL (33.0-37.0); MEAN PLATELET VOLUME 7.2 fL (7.2-11.7); MONO # 0.3 K/uL (0.0-0.8); MONO % 8.4 % (0.0-10.0); NEUT # 1.7 K/uL (1.8-7.0); NEUT % 42.1 % (50.0-75.0); NRBC % 0.1 % (0.0-2.0); RBC 4.2 Mil/uL (3.80-5.20)
[2018-02-11 08:20] LABS: ALB/GLOB RATIO 0.9 (1.0-2.1); ALBUMIN 3.3 g/dL (3.5-5.0); ALT/SGPT 65 U/L (9-52); AST/SGOT 57 U/L (14-36); BLOOD UREA NITROGEN 9 mg/dL (7-17); CALCIUM 8.7 mg/dl (8.6-10.4); GFR AFRICAN-AMERICAN > 60; GFR NON-AFRICAN AMERICAN > 60; LIPASE 128 U/L (23-300)
[2018-02-11] MEDS ORDERED: Magnesium Sulfate 1 gm in D5W 1 GM/100 ML BAG IVPB ONE (09:29)
[2018-02-11] MEDS: Enoxaparin 40 mg Syringe SC SCH (09:54)
[2018-02-11] MEDS ORDERED: Potassium Chloride 20 mEq/15 ml LIQ UD PO ONE (10:00)
--- NOTE | 2018-02-11 14:54 | CARD ---
APPROVED REPORT EKG Measurement Heart [id number] [place] [id number] <Conclusion> Normal sinus rhythm Nonspecigic ST/T changes Abnormal Electrocardiogram
--- NOTE | 2018-02-11 14:55 | CARD ---
APPROVED REPORT EKG Measurement Heart [id number] [place] [id number] <Conclusion> Normal sinus rhythm Nonspecific ST/T changes Abnormal Electrocardiogram
--- NOTE | 2018-02-11 14:57 | CARD ---
APPROVED REPORT EKG Measurement Heart [id number] <Conclusion> Normal sinus rhythm Nonspecific ST/T changes
--- NOTE | 2018-02-11 14:58 | CARD ---
APPROVED REPORT EKG Measurement Heart [id number] MD [id number] <Conclusion> Sinus bradycardia Nonspecific T wave changes Borderline EKG
[2018-02-11 15:49] VITALS: BP 116/66; PULSE 65; RESP 18; TEMP 98; O2SAT 96
--- NOTE | 2018-02-11 17:23 | CP.PCM.DIS ---
<Fariba Sosa - Last Filed: 02/11/18 17:15> Provider - Provider Date of Admission: 02/10/18 06:15 Attending physician: Nain Golden MD Primary care physician: Dr. Meza Consults: Cardio ([facility]) Time Spent in preparation of Discharge (in minutes): 45 Diagnosis - Discharge Diagnosis (1) Chest pain Status: Resolved (2) Pancreatitis Status: Resolved Hospital Course - Lab Results Lab Results: Most Recent Lab Values WBC 4.0 K/uL (4.8-10.8) L 02/11/18 07:56 RBC 4.20 Mil/uL (3.80-5.20) 02/11/18 07:56 Hgb 12.2 g/dL (11.0-16.0) 02/11/18 07:56 Hct 35.8 % (34.0-47.0) 02/11/18 07:56 MCV 85.4 fL (81.0-99.0) 02/11/18 07:56 MCH 29.1 pg (27.0-31.0) 02/11/18 07:56 MCHC 34.1 g/dL (33.0-37.0) 02/11/18 07:56 RDW 13.0 % (11.5-14.5) 02/11/18 07:56 Plt Count 274 K/uL (130-400) 02/11/18 07:56 MPV 7.2 fL (7.2-11.7) 02/11/18 07:56 Neut % (Auto) 42.1 % (50.0-75.0) L 02/11/18 07:56 Lymph % (Auto) 44.3 % (20.0-40.0) H 02/11/18 07:56 Rich % (Auto) 8.4 % (0.0-10.0) 02/11/18 07:56 Eos % (Auto) 4.4 % (0.0-4.0) H 02/11/18 07:56 Baso % (Auto) 0.8 % (0.0-2.0) 02/11/18 07:56 Neut # (Auto) 1.7 K/uL (1.8-7.0) L 02/11/18 07:56 Lymph # (Auto) 1.8 K/uL (1.0-4.3) 02/11/18 07:56 Rich # (Auto) 0.3 K/uL (0.0-0.8) 02/11/18 07:56 Eos # (Auto) 0.2 K/uL (0.0-0.7) 02/11/18 07:56 Baso # (Auto) 0.0 K/uL (0.0-0.2) 02/11/18 07:56 PT 12.8 SECONDS (9.7-12.2) H 02/10/18 02:33 INR 1.1 02/10/18 02:33 APTT 36 SECONDS (21-34) H 02/10/18 02:33 Sodium 141 mmol/L (132-148) 02/11/18 07:56 Potassium 3.3 mmol/L (3.6-5.2) L 02/11/18 07:56 Chloride 104 mmol/L (98-107) 02/11/18 07:56 Carbon Dioxide 27 mmol/L (22-30) 02/11/18 07:56 Anion Gap 13 (10-20) 02/11/18 07:56 BUN 9 mg/dL (7-17) 02/11/18 07:56 Creatinine 0.7 mg/dL (0.7-1.2) 02/11/18 07:56 Est GFR ( Amer) > 60 02/11/18 07:56 Est GFR (Non-Af Amer) > 60 02/11/18 07:56 Random Glucose 79 mg/dL (65-105) 02/11/18 07:56 Hemoglobin A1c 5.6 % (4.2-6.5) 02/10/18 12:16 Calcium 8.7 mg/dl (8.6-10.4) 02/11/18 07:56 Phosphorus 3.5 mg/dL (2.5-4.5) 02/11/18 07:56 Magnesium 1.4 mg/dL (1.6-2.3) L 02/11/18 07:56 Total Bilirubin 0.7 mg/dL (0.2-1.3) 02/11/18 07:56 AST 57 U/L (14-36) H D 02/11/18 07:56 ALT 65 U/L (9-52) H D 02/11/18 07:56 Alkaline Phosphatase 90 U/L (38-126) 02/11/18 07:56 Total Creatine Kinase 70 U/L (30-135) 02/10/18 14:59 CK-MB (Mass) 0.39 ng/mL (0.0-3.38) 02/10/18 14:59 Troponin I < 0.0120 ng/mL (0.00-0.120) 02/10/18 14:59 NT-Pro-B Natriuret Pep 148 pg/mL (0-900) 02/10/18 02:33 Total Protein 7.0 g/dL (6.3-8.3) 02/11/18 07:56 Albumin 3.3 g/dL (3.5-5.0) L 02/11/18 07:56 Globulin 3.7 gm/dL (2.2-3.9) 02/11/18 07:56 Albumin/Globulin Ratio 0.9 (1.0-2.1) L 02/11/18 07:56 Triglycerides 57 mg/dL (0-149) 02/10/18 16:48 Cholesterol 167 mg/dL (0-199) 02/10/18 16:48 LDL Cholesterol Direct 103 mg/dL (0-129) 02/10/18 16:48 HDL Cholesterol 43 mg/dL (30-70) 02/10/18 16:48 Lipase 128 U/L (23-300) 02/11/18 07:56 Free T4 2.58 ng/dL (0.78-2.19) H 02/10/18 12:18 TSH 3rd Generation 0.29 mIU/L (0.46-4.68) L 02/10/18 02:54 Urine Color Yellow (YELLOW) 02/10/18 02:11 Urine Clarity Clear (Clear) 02/10/18 02:11 Urine pH 8.0 (5.0-8.0) 02/10/18 02:11 Ur Specific [place] 1.012 (1.003-1.030) 02/10/18 02:11 Urine Protein Negative mg/dL (NEGATIVE) 02/10/18 02:11 Urine Glucose (UA) Normal mg/dL (Normal) 02/10/18 02:11 Urine Ketones Negative mg/dL (NEGATIVE) 02/10/18 02:11 Urine Blood Negative (NEGATIVE) 02/10/18 02:11 Urine Nitrate Negative (NEGATIVE) 02/10/18 02:11 Urine Bilirubin Negative (NEGATIVE) 02/10/18 02:11 Urine Urobilinogen Normal mg/dL (0.2-1.0) 02/10/18 02:11 Ur Leukocyte Esterase Neg Curt/uL (Negative) 02/10/18 02:11 Urine WBC (Auto) < 1 /hpf (0-5) 02/10/18 02:11 Urine RBC (Auto) 1 /hpf (0-3) 02/10/18 02:11 Salicylates 7.5 mg/dL 1 02/10/18 03:59 Urine Opiates Screen Negative (NEGATIVE) 02/10/18 06:58 Urine Methadone Screen Negative (NEGATIVE) 02/10/18 06:58 Ur Barbiturates Screen Negative (NEGATIVE) 02/10/18 06:58 Ur Phencyclidine Scrn Negative (NEGATIVE) 02/10/18 06:58 Ur Amphetamines Screen Negative (NEGATIVE) 02/10/18 06:58 U Benzodiazepines Scrn Negative (NEGATIVE) 02/10/18 06:58 U Oth Cocaine Metabols Negative (NEGATIVE) 02/10/18 06:58 U Cannabinoids Screen Negative (NEGATIVE) 02/10/18 06:58 Hepatitis A IgM Ab Negative (NEGATIVE) 02/10/18 16:48 Hep Bs Antigen Negative (NEGATIVE) 02/10/18 16:48 Hep B Core IgM Ab Negative (NEGATIVE) 02/10/18 16:48 Hepatitis C Antibody Negative (NEGATIVE) 02/10/18 16:48 HIV 1&2 Ag/Ab, 4th Gen Nonreactive (Nonreactive) 02/10/18 13:40 - Hospital Course Hospital Course: HPI: "Patient is a 67 year old female with past medical history of Hypertension , Hypothyroidism, TIA (2010), and left Rotator cuff tear who presents today for chest pain. Patient says she woke up at 1 am with squeezing chest pain in the center of her chest which she rates more than 10/10. Patient took 2 Jesus Aspirins with no relief. Patient also experienced palpitations, diaphoresis, shortness of breath, nausea, and light headedness. Patient's daughter whom she lived with called 911 because the pain was no resolving. Patient had an episode similar to this in 2014 while on vacation in [facility] and was hospitalized. She does not remember and echo or stress test being done, and she did not need a cardiac cath. Patient had one more episode similar to this about a year ago which resolved with Aspirin. Patient has seen Dr. Martinez (cardiology) about 1 year ago and was not told of any problems. Patient admits to mild generalized abdominal discomfort. Patient has also been having some left shoulder pain due to a fall in November and was told by Dr. Hector Phillips ( ortho) that she would need surgical intervention. Patient is planning to get a second opinion. Otherwise patient denies any cough, fevers, chills, vision changes, throat pain, diarrhea, constipation, hematuria, dysuria, hematochezia. Patient has denies recent travel or sick contacts." Patient admitted to rule out acute coronary syndrome. ROMIs were negative x 3 and ekgs were NSR. Patient's chest pain resolved. Echo was done and results will need to be followed up as an outpatient. Patient was continued on Aspirin. Patient's blood pressure medications were continued and bp was well controlled. Patient admitted with elevated Lipase of 8795. Patient was made NPO and given IVF. Repeat Lipase was 128. Patient had some mild abdominal discomfort on admission that resolved upon discharge. Patient has a history of hypothyroidism. TSH was found to be .29 and T4 2.58. Synthroid changed from 100mcg po to 75mcg po. Hepatic lesion found on abd/pelvis CT. Patient will need repeat CT/ MRI of abd and pelvis in 6 mo as an outpatient. This is a summary of the patient's hospital course. Please see chart for details. Discharge Exam - Additional Findings Additional findings: - Constitutional Appears: Non-toxic, No Acute Distress - Head Exam Head Exam: ATRAUMATIC, NORMAL INSPECTION, NORMOCEPHALIC - Eye Exam Eye Exam: EOMI, Normal appearance - ENT Exam ENT Exam: Mucous Membranes Moist - Respiratory Exam Respiratory Exam: Clear to Auscultation Bilateral, NORMAL BREATHING PATTERN. absent: Rales, Rhonchi, Wheezes, Respiratory Distress - Cardiovascular Exam Cardiovascular Exam: REGULAR RHYTHM, RRR, +S1, +S2 - GI/Abdominal Exam GI & Abdominal Exam: Normal Bowel Sounds, Soft. absent: Tenderness - Extremities Exam Extremities exam: Positive for: normal inspection. Negative for: pedal edema - Back Exam Back exam: NORMAL INSPECTION - Neurological Exam Neurological exam: Alert, Oriented x3 - Psychiatric Exam Psychiatric exam: Normal Affect, Normal Mood - Skin Skin Exam: Intact, Normal Color, Warm Discharge Plan - Discharge Medications Prescriptions: amLODIPine [Norvasc] 10 mg PO DAILY #30 tab Aspirin [Aspirin Chewable] 81 mg PO DAILY #30 chew Levothyroxine [Synthroid] 75 mcg PO DAILY@0630 #30 tab Losartan Potassium 50 mg PO DAILY #30 tablet - Follow Up Plan Condition: FAIR Disposition: HOME/ ROUTINE Instructions: Heart Healthy Diet, Pancreatitis (DC), Chest Pain (DC), Amlodipine, Aspirin, Levothyroxine, Losartan Additional Instructions: Patient stable for discharge as per Dr. Lee. Patient to please follow up with Dr. Meza within 7-10 days. Patient to please bring discharge paperwork. You will need to have a repeat CT Abdomen and Pelvis in [place] [address] Meza to make sure liver lesion has not changed. Follow up mammogram should be done as an outpatient through Dr. Meza's office. Take only the following medications and get the prescriptions at your pharmacy on your way home from the hospital please. You will need to follow up pending blood work (IGG 4) with Dr. Meza's office. Advance diet as tolerated at home, stay well hydrated with water. Please follow up ECHO report through Dr. Meza's office. Please take the following medications: Losartan 50mg daily with dinner. Norvasc 10mg daily with breakfast. Levothyroxine 75mg daily 30 minutes before breakfast. Aspirin 81 mg daily with breakfast. Please return to the Emergency Room if symptoms return. Patient explained instructions who understands and agrees. Referrals: Ramesh Meza [Staff Provider] - <Wili Lee - Last Filed: 02/11/18 20:17> Provider - Provider Date of Admission: 02/10/18 06:15 Attending physician: Nain Golden MD Time Spent in preparation of Discharge (in minutes): 40 Hospital Course - Lab Results Lab Results: Most Recent Lab Values WBC 4.0 K/uL (4.8-10.8) L 02/11/18 07:56 RBC 4.20 Mil/uL (3.80-5.20) 02/11/18 07:56 Hgb 12.2 g/dL (11.0-16.0) 02/11/18 07:56 Hct 35.8 % (34.0-47.0) 02/11/18 07:56 MCV 85.4 fL (81.0-99.0) 02/11/18 07:56 MCH 29.1 pg (27.0-31.0) 02/11/18 07:56 MCHC 34.1 g/dL (33.0-37.0) 02/11/18 07:56 RDW 13.0 % (11.5-14.5) 02/11/18 07:56 Plt Count 274 K/uL (130-400) 02/11/18 07:56 MPV 7.2 fL (7.2-11.7) 02/11/18 07:56 Neut % (Auto) 42.1 % (50.0-75.0) L 02/11/18 07:56 Lymph % (Auto) 44.3 % (20.0-40.0) H 02/11/18 07:56 Rich % (Auto) 8.4 % (0.0-10.0) 02/11/18 07:56 Eos % (Auto) 4.4 % (0.0-4.0) H 02/11/18 07:56 Baso % (Auto) 0.8 % (0.0-2.0) 02/11/18 07:56 Neut # (Auto) 1.7 K/uL (1.8-7.0) L 02/11/18 07:56 Lymph # (Auto) 1.8 K/uL (1.0-4.3) 02/11/18 07:56 Rich # (Auto) 0.3 K/uL (0.0-0.8) 02/11/18 07:56 Eos # (Auto) 0.2 K/uL (0.0-0.7) 02/11/18 07:56 Baso # (Auto) 0.0 K/uL (0.0-0.2) 02/11/18 07:56 PT 12.8 SECONDS (9.7-12.2) H 02/10/18 02:33 INR 1.1 02/10/18 02:33 APTT 36 SECONDS (21-34) H 02/10/18 02:33 Sodium 141 mmol/L (132-148) 02/11/18 07:56 Potassium 3.3 mmol/L (3.6-5.2) L 02/11/18 07:56 Chloride 104 mmol/L (98-107) 02/11/18 07:56 Carbon Dioxide 27 mmol/L (22-30) 02/11/18 07:56 Anion Gap 13 (10-20) 02/11/18 07:56 BUN 9 mg/dL (7-17) 02/11/18 07:56 Creatinine 0.7 mg/dL (0.7-1.2) 02/11/18 07:56 Est GFR ( Amer) > 60 02/11/18 07:56 Est GFR (Non-Af Amer) > 60 02/11/18 07:56 Random Glucose 79 mg/dL (65-105) 02/11/18 07:56 Hemoglobin A1c 5.6 % (4.2-6.5) 02/10/18 12:16 Calcium 8.7 mg/dl (8.6-10.4) 02/11/18 07:56 Phosphorus 3.5 mg/dL (2.5-4.5) 02/11/18 07:56 Magnesium 1.4 mg/dL (1.6-2.3) L 02/11/18 07:56 Total Bilirubin 0.7 mg/dL (0.2-1.3) 02/11/18 07:56 AST 57 U/L (14-36) H D 02/11/18 07:56 ALT 65 U/L (9-52) H D 02/11/18 07:56 Alkaline Phosphatase 90 U/L (38-126) 02/11/18 07:56 Total Creatine Kinase 70 U/L (30-135) 02/10/18 14:59 CK-MB (Mass) 0.39 ng/mL (0.0-3.38) 02/10/18 14:59 Troponin I < 0.0120 ng/mL (0.00-0.120) 02/10/18 14:59 NT-Pro-B Natriuret Pep 148 pg/mL (0-900) 02/10/18 02:33 Total Protein 7.0 g/dL (6.3-8.3) 02/11/18 07:56 Albumin 3.3 g/dL (3.5-5.0) L 02/11/18 07:56 Globulin 3.7 gm/dL (2.2-3.9) 02/11/18 07:56 Albumin/Globulin Ratio 0.9 (1.0-2.1) L 02/11/18 07:56 Triglycerides 57 mg/dL (0-149) 02/10/18 16:48 Cholesterol 167 mg/dL (0-199) 02/10/18 16:48 LDL Cholesterol Direct 103 mg/dL (0-129) 02/10/18 16:48 HDL Cholesterol 43 mg/dL (30-70) 02/10/18 16:48 Lipase 128 U/L (23-300) 02/11/18 07:56 Free T4 2.58 ng/dL (0.78-2.19) H 02/10/18 12:18 TSH 3rd Generation 0.29 mIU/L (0.46-4.68) L 02/10/18 02:54 Urine Color Yellow (YELLOW) 02/10/18 02:11 Urine Clarity Clear (Clear) 02/10/18 02:11 Urine pH 8.0 (5.0-8.0) 02/10/18 02:11 Ur Specific [place] 1.012 (1.003-1.030) 02/10/18 02:11 Urine Protein Negative mg/dL (NEGATIVE) 02/10/18 02:11 Urine Glucose (UA) Normal mg/dL (Normal) 02/10/18 02:11 Urine Ketones Negative mg/dL (NEGATIVE) 02/10/18 02:11 Urine Blood Negative (NEGATIVE) 02/10/18 02:11 Urine Nitrate Negative (NEGATIVE) 02/10/18 02:11 Urine Bilirubin Negative (NEGATIVE) 02/10/18 02:11 Urine Urobilinogen Normal mg/dL (0.2-1.0) 02/10/18 02:11 Ur Leukocyte Esterase Neg Curt/uL (Negative) 02/10/18 02:11 Urine WBC (Auto) < 1 /hpf (0-5) 02/10/18 02:11 Urine RBC (Auto) 1 /hpf (0-3) 02/10/18 02:11 Salicylates 7.5 mg/dL 1 02/10/18 03:59 Urine Opiates Screen Negative (NEGATIVE) 02/10/18 06:58 Urine Methadone Screen Negative (NEGATIVE) 02/10/18 06:58 Ur Barbiturates Screen Negative (NEGATIVE) 02/10/18 06:58 Ur Phencyclidine Scrn Negative (NEGATIVE) 02/10/18 06:58 Ur Amphetamines Screen Negative (NEGATIVE) 02/10/18 06:58 U Benzodiazepines Scrn Negative (NEGATIVE) 02/10/18 06:58 U Oth Cocaine Metabols Negative (NEGATIVE) 02/10/18 06:58 U Cannabinoids Screen Negative (NEGATIVE) 02/10/18 06:58 Hepatitis A IgM Ab Negative (NEGATIVE) 02/10/18 16:48 Hep Bs Antigen Negative (NEGATIVE) 02/10/18 16:48 Hep B Core IgM Ab Negative (NEGATIVE) 02/10/18 16:48 Hepatitis C Antibody Negative (NEGATIVE) 02/10/18 16:48 HIV 1&2 Ag/Ab, 4th Gen Nonreactive (Nonreactive) 02/10/18 13:40 Attending/Attestation - Attestation I have personally seen and examined this patient.: Yes I have fully participated in the care of the patient.: Yes I have reviewed all pertinent clinical information, including history, physical exam and plan: Yes Notes (Text): 02/11/18 20:16 Patient was seen and examined shortly after resident. Exam, assessment and plan and discharge instructions were gone over with the resident. Discharge instructions were also gone over with the patient and she expressed understanding. Wili Lee D.O.
--- NOTE | 2018-02-11 18:29 | PN ---
DATE: 02/11/2018 SUBJECTIVE: The patient has no chest pain or abdominal pain. PHYSICAL EXAMINATION: VITAL SIGNS: Blood pressure 144/83, heart rate 69, temperature 97.9, respirations 20. HEENT: Normocephalic. CHEST: Clear. HEART: S1, S2 regular. ABDOMEN: Soft. EXTREMITIES: No edema. LABORATORY DATA: Today's SMA-7 is within normal limits except for potassium of 3.3. Today's hemoglobin and hematocrit within normal limits. White count 4.0, platelet count 174,000. A repeat lipase level is within normal limits at 28. Preliminary review of the echocardiographic study revealed in my own opinion normal ejection fraction with reduced diastolic compliance. ASSESSMENT: 1. Atypical chest pain. 2. Improved pancreatitis. 3. Hypertension. 4. Hypothyroidism. RECOMMENDATIONS: Case was discussed with Dr. Lee. The patient can be maintained on aspirin, Cozaar, Norvasc, and Synthroid. No further cardiac workup is indicated at this time. Patrick Cuellar MD
--- NOTE | 2018-02-12 07:12 | CARD ---
APPROVED REPORT EXAM: Two-dimensional and M-mode echocardiogram with Doppler and color Doppler. Other Information Quality : GoodRhythm : INDICATION CVA/TIA Chest Pain RISK FACTORS Hypertension 2D DIMENSIONS IVSd0.8 (0.7-1.1cm)LVDd3.8 (3.9-5.9cm) PWd0.9 (0.7-1.1cm)LVDs1.8 (2.5-4.0cm) FS (%) 51.2 %LVEF (%)65.0 (>50%) M-Mode DIMENSIONS Left Atrium (MM)3.59 (2.5-4.0cm)Aortic Root2.95 (2.2-3.7cm) Aortic Cusp Exc.2.09 (1.5-2.0cm) Mitral Valve MV E Loojzhgo99.4cm/sMV A Cwgtdqdc75.0cm/sE/A ratio1.0 TDI E/Lateral E'0.0E/Medial E'0.0 Tricuspid Valve TR Peak [id number]/sTR Peak Gr.26mmHg <Conclusion> Left ventricle: thickness: normal; size: normal; overall ejection fraction: 65%: diastolic filling pressures: normal Mitral valve: annulus: normal: leaflets: normal: excursion: normal; no significant trans-mitral gradient: no significant incompetence: left atrium: normal Aortic valve: leaflets: normal: excursion: normal; no significant trans-aortic gradient: No significant incompetence: aortic root: normal Right sided Structures: Pulmonary valve: normal; no significant incompetence; Tricuspid valve: normal; no significant incompetence: Intra-cardiac hemodynamics: pulmonary systolic pressures: normal; central venous pressures: normal No pericardial effusion
== END 2018-02-11 19:27 | disposition home or self-care (01) | DRG 543 ==
LOC: C.ER 01:59 → C.6T 06:15
PROVIDERS: ADMIT Family Medicine; ATTEND Family Medicine
DX: R07.89 Other chest pain (principal); K85.90 Acute pancreatitis without necrosis or infection, unspecified; K76.9 Liver disease, unspecified; E03.9 Hypothyroidism, unspecified; I10 Essential (primary) hypertension; K21.9 Gastro-esophageal reflux disease without esophagitis; Z79.82 Long term (current) use of aspirin; Z79.899 Other long term (current) drug therapy; Z86.73 Personal history of transient ischemic attack (TIA), and cerebral infarction without residual deficits; Z91.81 History of falling

== ENCOUNTER 2018-02-20 09:10 | Day surgery (SDC) | payer MEDICAID ==
[2018-02-20] MEDS ORDERED: Lactated Ringer's 1,000 ML IV ONE ×2 (12:15)
[2018-02-20] MEDS ORDERED: Propofol 10 mg/ml Inj (20 ML) ONE (12:18)
[2018-02-20 12:54] VITALS: TEMP 97.9; O2SAT 100
[2018-02-20 13:21] VITALS: RESP 15
[2018-02-20 13:56] VITALS: BP 117/62; PULSE 62
== END 2018-02-20 13:50 | disposition home or self-care (01) ==
LOC: C.ENDO 09:10
PROVIDERS: ATTEND Internal Medicine Gastroenterology
DX: K29.70 Gastritis, unspecified, without bleeding (principal); R10.13 Epigastric pain; K44.9 Diaphragmatic hernia without obstruction or gangrene; R13.10 Dysphagia, unspecified; K21.0 Gastro-esophageal reflux disease with esophagitis; K29.80 Duodenitis without bleeding
CPT/HCPCS: 43239; 88305; 88312; 88342; J2704; J7120

== ENCOUNTER 2018-03-29 19:21 | Inpatient (IN) | payer MEDICAID ==
[2018-03-29 19:21] VITALS: BMI 31.8
[2018-03-29] MEDS ORDERED: Aspirin 325 mg EC Tablets PO STA (20:03)
[2018-03-29] MEDS ORDERED: Sodium Chloride 0.9% 1,000 ML IV ONE (20:03)
--- NOTE | 2018-03-29 20:03 | C.PDOC ---
History Of Present Illness 67 year old female presents to the ED /o epigastric pain associated with chest pain. Patient reports he had similar pain for the last couple of days. Patient states he still drinks a bottle a day. Patient denies fever, chills, nausea, vomit, diarrhea. Time Seen by Provider: 03/29/18 20:02 Chief Complaint (Nursing): Chest Pain History Per: Patient History/Exam Limitations: no limitations Onset/Duration Of Symptoms: Days Current Symptoms Are (Timing): Still Present Severity: Moderate Pain Scale Rating Of: 5 Quality: "Pain" Associated Symptoms: Other (epigastric pain). denies: Nausea Modifying Factors: None Exacerbating Factors: None Recent travel outside of the [place]: No Additional History Per: Patient, Family Past Medical History Reviewed: Historical Data, Nursing Documentation, Vital Signs Vital Signs: Last Vital Signs Temp 98.4 F 03/29/18 19:28 Pulse 74 03/29/18 20:21 Resp 18 03/29/18 20:21 BP 144/84 03/29/18 20:21 Pulse Ox 98 03/29/18 20:52 - Medical History PMH: Depression, HTN, Hypercholesterolemia, Hyperthyroidism, TIA (2009 ) Denies: Chronic Kidney Disease Surgical History: No Surg Hx Family History: States: Unknown Family Hx - Social History Hx Alcohol Use: Yes (bottle a day) Hx Substance Use: No - Immunization History Hx Tetanus Toxoid Vaccination: No Hx Influenza Vaccination: Yes Hx Pneumococcal Vaccination: Yes Review Of Systems Constitutional: Negative for: Fever, Chills Eyes: Negative for: Vision Change Cardiovascular: Positive for: Chest Pain Respiratory: Negative for: Cough, Shortness of Breath Gastrointestinal: Positive for: Abdominal Pain. Negative for: Nausea, Vomiting , Diarrhea Skin: Negative for: Rash Neurological: Negative for: Weakness Psych: Negative for: Anxiety Physical Exam - Physical Exam Appears: Non-toxic, No Acute Distress Skin: Warm, Dry Head: Normacephalic Eye(s): bilateral: Normal Inspection Oral Mucosa: Moist Neck: Supple Chest: Symmetrical Cardiovascular: Rhythm Regular Respiratory: No Rales, No Rhonchi, No Wheezing Gastrointestinal/Abdominal: Soft, Tenderness (mid epigastric), No Guarding, No Rebound Back: Normal Inspection Extremity: No Tenderness, Pedal Edema (trace bilateral), Capillary Refill (< 2 seconds) Extremity: Bilateral: Atraumatic, Normal Color And Temperature, Normal ROM Pulses: Left Dorsalis Pedis: Normal, Right Dorsalis Pedis: Normal Neurological/Psych: Oriented x3, Normal Speech Gait: Steady ED Course And Treatment - Laboratory Results Result Diagrams: 03/29/18 20:09 03/29/18 20:09 ECG: Interpreted By Me, Viewed By Me ECG Rhythm: Sinus Rhythm (69), Nonspecific Changes O2 Sat by Pulse Oximetry: 98 (ON RA) Pulse Ox Interpretation: Normal - Radiology CXR: Interpreted by Me, Viewed By Me CXR Interpretation: No: Infiltrates, Fracture, Pnemothorax Progress Note: Plan: - EKG. - Labs. - CXR. - Ecotrin 325 mg PO. - Protonix 40 mg IVP. - IV fluids Disposition Discussed With : Monisha Lagos Comment: accepted the pt on her service and took over hte care at 9PM Doctor Will See Patient In The: Hospital Counseled Patient/Family Regarding: Studies Performed, Diagnosis - Disposition Disposition: HOSPITALIZED Disposition Time: 20:03 Condition: FAIR Forms: [facility] ([place]ish) - POA Present On Arrival: None - Clinical Impression Clinical Impression: Chest pain, Pancreatitis - Scribe Statement The provider has reviewed the documentation as recorded by the Scribe Taco Wilkinson All medical record entries made by the Scribe were at my direction and personally dictated by me. I have reviewed the chart and agree that the record accurately reflects my personal performance of the history, physical exam, medical decision making, and the department course for this patient. I have also personally directed, reviewed, and agree with the discharge instructions and disposition. Decision To Admit - Pt Status Changed To: Hospital Disposition Of: Inpatient - Admit Certification Admit to Inpatient:: After my assessment, the patient will require hospitalization for at least two midnights. This is because of the severity of symptoms shown, intensity of services needed, and/or the medical risk in this patient being treated as an outpatient. - InPatient: Physician Admission Certification: I certify that this patient requires 2 or more midnights of care for the following reason:: After my assessment, the patient will require hospitalization for at least two midnights. This is because of the severity of symptoms shown, intensity of services needed, and/or the medical risk in this patient being treated as an outpatient. - . Bed Request Type: Telemetry Admitting Physician: Monisha Lagos Patient Diagnosis: Chest pain, Pancreatitis
[2018-03-29] MEDS ORDERED: Aspirin 325 mg EC Tablets PO ONE (20:12)
[2018-03-29 20:13] LABS: BASO % 0.6 % (0.0-2.0); EOS # 0.2 K/uL (0.0-0.7); EOS % 2.5 % (0.0-4.0); HEMOGLOBIN 13.2 g/dL (11.0-16.0); LYMPH # 1.7 K/uL (1.0-4.3); LYMPH % 23.5 % (20.0-40.0); MEAN CELL VOLUME 85.1 fL (81.0-99.0); MEAN CORPUSCULAR HEMOGLOBIN 28.5 pg (27.0-31.0); MEAN CORPUSCULAR HGB CONC 33.5 g/dL (33.0-37.0); MEAN PLATELET VOLUME 7.6 fL (7.2-11.7); MONO # 0.6 K/uL (0.0-0.8); MONO % 7.6 % (0.0-10.0); NEUT # 4.9 K/uL (1.8-7.0); NEUT % 65.8 % (50.0-75.0); NRBC % 0.1 % (0.0-2.0); RBC 4.64 Mil/uL (3.80-5.20); RED CELL DISTRIBUTION WIDTH 13.7 % (11.5-14.5); WHITE BLOOD COUNT 7.4 K/uL (4.8-10.8)
[2018-03-29] MEDS ORDERED: Sodium Chloride 0.9% 1,000 ML ONE (20:13)
[2018-03-29 20:21] LABS: INR 1.2; PROTHROMBIN TIME 13.1 SECONDS (9.7-12.2)
[2018-03-29 20:38] LABS: CALCIUM 9.2 mg/dl (8.6-10.4); GFR AFRICAN-AMERICAN > 60; GFR NON-AFRICAN AMERICAN 55
[2018-03-29] MEDS ORDERED: Sucralfate 1 gm/10 ml Oral Susp UD ONE (20:38)
[2018-03-29] MEDS ORDERED: Sucralfate 1 gm/10 ml Oral Susp UD PO STA (20:38)
[2018-03-29 20:52] LABS: ALBUMIN 4.7 g/dL (3.5-5.0); ALT/SGPT 297 U/L (9-52); AST/SGOT 159 U/L (14-36); BLOOD UREA NITROGEN 22 mg/dL (7-17); LIPASE 3551 U/L (23-300)
[2018-03-30] MEDS: Levothyroxine 75 MCG TAB PO SCH (06:01)
[2018-03-30] MEDS: Lactated Ringer's 1,000 ML IV SCH ×5 (07:42→22:30)
--- NOTE | 2018-03-30 09:29 | RAD ---
PROCEDURE: CHEST RADIOGRAPH, 1 VIEW HISTORY: chest pain COMPARISON: 02/10/2018 FINDINGS: LUNGS: Clear. PLEURA: No pneumothorax or pleural fluid seen. CARDIOVASCULAR: No radiographic findings to suggest acute or significant cardiovascular disease. OSSEOUS STRUCTURES: No significant abnormalities. VISUALIZED UPPER ABDOMEN: Normal. OTHER FINDINGS: None. IMPRESSION: No active disease. No acute/significant interval changes. Concordant results with the preliminary interpretation rendered by the emergency department physician procedure.
--- NOTE | 2018-03-30 09:48 | US ---
HISTORY: r/o gallstones, pancreatitis COMPARISON: None. TECHNIQUE: Sonographic evaluation of the abdomen. FINDINGS: LIVER: Measures 10.8 cm. Normal echogenicity of the liver parenchyma. No mass. No intrahepatic bile duct dilatation. GALLBLADDER: Cholelithiasis. Adenomyomatosis. Thickened gallbladder wall up to 6 mm. Trace pericholecystic fluid. Negative sonographic Pedersen sign. Findings equivocal for acute cholecystitis. COMMON BILE DUCT: Measures 8 mm. No stones. No dilatation. PANCREAS: Unremarkable as visualized. No mass. No ductal dilatation. RIGHT KIDNEY: Measures 9.6cm. Normal echogenicity. No calculus, mass, or hydronephrosis. LEFT KIDNEY: Measures 9.2cm. Normal echogenicity. No calculus, mass, or hydronephrosis. SPLEEN: Normal in size and contour. No mass. AORTA: No aneurysmal dilatation. IVC: Unremarkable. OTHER FINDINGS: None. IMPRESSION: Cholelithiasis. Trace pericholecystic fluid. Thickened gallbladder wall. Negative sonographic Peedrsen sign. Findings equivocal for cholecystitis. Incidentally noted adenomyomatosis.
[2018-03-30] MEDS: Pantoprazole 40 mg EC Tab PO SCH (10:45)
[2018-03-30] MEDS: cefTRIAXone IV 1 gm in Dextros 50 ML IVPB SCH (10:45)
--- NOTE | 2018-03-30 10:49 | CP.PCM.CON ---
<Coty Birch - Last Filed: 03/30/18 10:57> History of Present Illness - History of Present Illness History of Present Illness: GI Fellow PGY4 Consult Note This is a 67 year old female with past medical history of Hypertension, Hypothyroidism, TIA (2009), left Rotator cuff tear, pancreatitis who presents with complaints of epigastric abdominal pain radiating to chest pain. Pt was admitted in January 2018 for acute pancreatitis which improved and she was discharged after conservative management. CT imaging at that time did not how acute pancreatitis, only a small liver lesion to followup on outpt. Her Lipid profile was normal and no significant etoh hx was documented. Pt was now admitted and found ot have elevated LFTs and Lipase of 3551. Pt had a normal echo done on last admission. Otherwise patient denies any cough, fevers, chills , vision changes, throat pain, diarrhea, constipation, hematuria, dysuria, hematochezia. Patient has denies recent travel or sick contacts. Pt had EGD with Dr. Urbano 02/2018 for dysphagia and found to have reflux esophagitis, gastritis and duodenitis, path neg H.pylori. Colonoscopy 04/2017, internal hemorrhoids, diverticulosis, 5mm polyp in appendical orifice, path tubular adenoma. ROS: A 12pt ROS was negative except as above PMHx: As stated in HPI PSHx: 3 c-sections, b/l lumpectomy in - benign FHx: Mom: breast CA at 53 SHx: denies tobacco or drugs, drank socially 20 years ago Past Patient History - Infectious Disease Hx of Infectious Diseases: None - Past Medical History & Family History Past Medical History?: Yes - Past Social History Smoking Status: Never Smoked - CARDIAC Hx Cardiac Disorders: Yes Hx Hypercholesterolemia: Yes Hx Hypertension: Yes - PULMONARY Hx Respiratory Disorders: No - NEUROLOGICAL Hx Neurological Disorder: Yes Hx Transient Ischemic Attacks (TIA): Yes (2009 ) Other/Comment: "Blood Clot in my brain" - HEENT Hx HEENT Problems: Yes Hx Cataracts: Yes (CATARACT REMOVAL RIGHT EYE 2015 ) Hx Deafness: Yes (R ear) Other/Comment: Bilateral Cataract Surgery - RENAL Hx Chronic Kidney Disease: No - ENDOCRINE/METABOLIC Hx Endocrine Disorders: Yes Hx Hyperthyroidism: Yes - HEMATOLOGICAL/ONCOLOGICAL Hx Blood Disorders: No - INTEGUMENTARY Hx Dermatological Problems: No - MUSCULOSKELETAL/RHEUMATOLOGICAL Hx Musculoskeletal Disorders: Yes Hx Falls: Yes (Feb 18) - GASTROINTESTINAL Hx Gastrointestinal Disorders: Yes Hx Gastroesophageal Reflux: Yes Other/Comment: CONSTIPATION. STOMACH ISSUES - GENITOURINARY/GYNECOLOGICAL Hx Genitourinary Disorders: No - PSYCHIATRIC Hx Psychophysiologic Disorder: Yes Hx Bipolar Disorder: Yes (No meds) Hx Substance Use: No - SURGICAL HISTORY Hx Surgeries: Yes Hx Cataract Extraction: Yes (RIGHT EYE 2015 ) Hx Section: Yes (3X) Other/Comment: bilateral breast lumpectomy in 1985 and 1986 - ANESTHESIA Hx Anesthesia: Yes Hx Anesthesia Reactions: No Hx Malignant Hyperthermia: No Has any member of the family had a problem w/ anesthesia?: No Meds Allergies/Adverse Reactions: Allergies Allergy/AdvReac Type Severity Reaction Status Date / Time No Known Allergies Allergy Unverified 03/29/18 19:32 - Medications Medications: Current Medications Amlodipine Besylate (Norvasc) 10 mg PO DAILY [facility] Last Admin: 03/30/18 10:45 Dose: 10 mg Hydrochlorothiazide (Hydrodiuril) 25 mg PO DAILY [facility] Last Admin: 03/30/18 10:45 Dose: 25 mg Lactated Ringer's (Lactated Ringer's) 1,000 mls @ 200 mls/hr IV .Q5H [facility] Last Admin: 03/30/18 07:42 Dose: 200 mls/hr Ceftriaxone Sodium (Rocephin Iv 1 Gm Duplex) 50 mls @ 100 mls/hr IVPB DAILY [facility] PRN Reason: Protocol Last Admin: 03/30/18 10:45 Dose: 100 mls/hr Levothyroxine Sodium (Synthroid) 75 mcg PO DAILY@0630 [facility] Last Admin: 03/30/18 06:01 Dose: 75 mcg Losartan Potassium (Cozaar) 50 mg PO QPM [facility] Pantoprazole Sodium (Protonix Ec Tab) 40 mg PO DAILY [facility] Last Admin: 03/30/18 10:45 Dose: 40 mg Physical Exam - Constitutional Appears: Non-toxic, No Acute Distress - Head Exam Head Exam: ATRAUMATIC, NORMAL INSPECTION, NORMOCEPHALIC - Eye Exam Eye Exam: EOMI, Normal appearance Pupil Exam: NORMAL ACCOMODATION, PERRL - ENT Exam ENT Exam: Mucous Membranes Moist, Normal Exam - Neck Exam Neck exam: Positive for: Normal Inspection - Respiratory Exam Respiratory Exam: Clear to Auscultation Bilateral, NORMAL BREATHING PATTERN - Cardiovascular Exam Cardiovascular Exam: RRR, +S1, +S2 - GI/Abdominal Exam GI & Abdominal Exam: Normal Bowel Sounds, Soft, Tenderness. absent: Distended, Guarding, Organomegaly - Rectal Exam Rectal Exam: Deferred - Extremities Exam Extremities exam: Positive for: full ROM, normal inspection - Back Exam Back exam: NORMAL INSPECTION - Neurological Exam Neurological exam: Alert, Oriented x3 - Psychiatric Exam Psychiatric exam: Normal Affect, Normal Mood - Skin Skin Exam: Dry, Intact, Normal Color, Warm Results - Vital Signs Recent Vital Signs: Last Vital Signs Temp 97.7 F 03/30/18 07:45 Pulse 60 03/30/18 10:44 Resp 18 03/30/18 07:45 BP 113/72 03/30/18 10:44 Pulse Ox 97 03/30/18 07:45 - Labs Result Diagrams: 03/29/18 20:09 03/29/18 20:09 Labs: Laboratory Results - last 24 hr 03/29/18 03/29/18 03/29/18 20:09 20:09 20:09 WBC 7.4 D RBC 4.64 Hgb 13.2 Hct 39.5 MCV 85.1 MCH 28.5 MCHC 33.5 RDW 13.7 Plt Count 345 MPV 7.6 Neut % (Auto) 65.8 Lymph % (Auto) 23.5 [place] % (Auto) 7.6 Eos % (Auto) 2.5 Baso % (Auto) 0.6 Neut # (Auto) 4.9 Lymph # (Auto) 1.7 [place] # (Auto) 0.6 Eos # (Auto) 0.2 Baso # (Auto) 0.0 PT 13.1 H INR 1.2 APTT 42 H Sodium 139 Potassium 4.5 Chloride 98 Carbon Dioxide 28 Anion Gap 17 BUN 22 H Creatinine 1.0 Est GFR ( Amer) > 60 Est GFR (Non-Af Amer) 55 Random Glucose 98 Calcium 9.2 Total Bilirubin 1.3 AST 159 H D ALT 297 H D Alkaline Phosphatase 158 H D Troponin I 0.0200 Total Protein 9.4 H Albumin 4.7 Globulin 4.7 H Albumin/Globulin Ratio 1.0 Lipase 3551 H Alcohol, Quantitative 03/29/18 20:36 WBC RBC Hgb Hct MCV MCH MCHC RDW Plt Count MPV Neut % (Auto) Lymph % (Auto) [place] % (Auto) Eos % (Auto) Baso % (Auto) Neut # (Auto) Lymph # (Auto) [place] # (Auto) Eos # (Auto) Baso # (Auto) PT INR APTT Sodium Potassium Chloride Carbon Dioxide Anion Gap BUN Creatinine Est GFR ( Amer) Est GFR (Non-Af Amer) Random Glucose Calcium Total Bilirubin AST ALT Alkaline Phosphatase Troponin I Total Protein Albumin Globulin Albumin/Globulin Ratio Lipase Alcohol, Quantitative < 10 Assessment & Plan - Assessment and Plan (Free Text) Assessment: This is a 67yF presenting with complaints of epigastric abdominal pain. 1. Acute cholecystitis 2. Cholethiaisis 3. Elevated LFTs 4. Pancreatitis-possible gallstone pancreatitis? vs alcohol induced? Plan: -Continue supportive care with pain control and anti-emetics -Abd US with gallstones and cholecystitis -IV abx Rocephin -Recommend surgical cs -Elevated LFTs maybe from gallstones, acute cholecystitis vs gallstone pancreatitis, vs alcohol induced with questionable hx? -Trend LFTs -MRCP to r/o duct dilation/stone -NPO -IVF hydration with LR@ 200, echo with normal EF 01/2018 -Monitor BUN/Hct -Will continue to follow closely -Discussed with Dr. Lagos <Rick Macario - Last Filed: 03/30/18 11:35> Meds - Medications Medications: Current Medications Amlodipine Besylate (Norvasc) 10 mg PO DAILY [facility] Last Admin: 03/30/18 10:45 Dose: 10 mg Hydrochlorothiazide (Hydrodiuril) 25 mg PO DAILY [facility] Last Admin: 03/30/18 10:45 Dose: 25 mg Lactated Ringer's (Lactated Ringer's) 1,000 mls @ 200 mls/hr IV .Q5H [facility] Last Admin: 03/30/18 07:42 Dose: 200 mls/hr Ceftriaxone Sodium (Rocephin Iv 1 Gm Duplex) 50 mls @ 100 mls/hr IVPB DAILY [facility] PRN Reason: Protocol Last Admin: 03/30/18 10:45 Dose: 100 mls/hr Levothyroxine Sodium (Synthroid) 75 mcg PO DAILY@0630 [facility] Last Admin: 03/30/18 06:01 Dose: 75 mcg Losartan Potassium (Cozaar) 50 mg PO QPM [facility] Pantoprazole Sodium (Protonix Ec Tab) 40 mg PO DAILY [facility] Last Admin: 03/30/18 10:45 Dose: 40 mg Results - Vital Signs Recent Vital Signs: Last Vital Signs Temp 97.7 F 03/30/18 07:45 Pulse 60 03/30/18 10:44 Resp 18 03/30/18 07:45 BP 113/72 03/30/18 10:44 Pulse Ox 97 03/30/18 07:45 - Labs Result Diagrams: 03/29/18 20:09 03/29/18 20:09 Labs: Laboratory Results - last 24 hr 03/29/18 03/29/18 03/29/18 20:09 20:09 20:09 WBC 7.4 D RBC 4.64 Hgb 13.2 Hct 39.5 MCV 85.1 MCH 28.5 MCHC 33.5 RDW 13.7 Plt Count 345 MPV 7.6 Neut % (Auto) 65.8 Lymph % (Auto) 23.5 [place] % (Auto) 7.6 Eos % (Auto) 2.5 Baso % (Auto) 0.6 Neut # (Auto) 4.9 Lymph # (Auto) 1.7 [place] # (Auto) 0.6 Eos # (Auto) 0.2 Baso # (Auto) 0.0 PT 13.1 H INR 1.2 APTT 42 H Sodium 139 Potassium 4.5 Chloride 98 Carbon Dioxide 28 Anion Gap 17 BUN 22 H Creatinine 1.0 Est GFR ( Amer) > 60 Est GFR (Non-Af Amer) 55 Random Glucose 98 Calcium 9.2 Total Bilirubin 1.3 AST 159 H D ALT 297 H D Alkaline Phosphatase 158 H D Troponin I 0.0200 Total Protein 9.4 H Albumin 4.7 Globulin 4.7 H Albumin/Globulin Ratio 1.0 Lipase 3551 H Alcohol, Quantitative 03/29/18 20:36 WBC RBC Hgb Hct MCV MCH MCHC RDW Plt Count MPV Neut % (Auto) Lymph % (Auto) [place] % (Auto) Eos % (Auto) Baso % (Auto) Neut # (Auto) Lymph # (Auto) [place] # (Auto) Eos # (Auto) Baso # (Auto) PT INR APTT Sodium Potassium Chloride Carbon Dioxide Anion Gap BUN Creatinine Est GFR ( Amer) Est GFR (Non-Af Amer) Random Glucose Calcium Total Bilirubin AST ALT Alkaline Phosphatase Troponin I Total Protein Albumin Globulin Albumin/Globulin Ratio Lipase Alcohol, Quantitative < 10 Attending/Attestation - Attestation I have personally seen and examined this patient.: Yes I have fully participated in the care of the patient.: Yes I have reviewed all pertinent clinical information: Yes Notes (Text): 03/30/18 11:31 This is a 67 yr old F presenting with complaints of epigastric abdominal pain and LFt abnormality with cholecystitis and adenomyomatosis. Recommend surgical management with cholecystectomy. Pancreatitis secondary to gallstines. Hepatitis serologies negative. IVF at 200 cc/hr. MRCP to r/o duct dilation/stone
--- NOTE | 2018-03-30 11:45 | CP.PCM.CON ---
<Steven Niño - Last Filed: 03/31/18 05:18> History of Present Illness - History of Present Illness History of Present Illness: General Surgery Consult For Dr. Flanagan This is a 67F with a PMH of Pancreatitis in 01/2018 HTN, Hypothyroidism, and a TIA in 2009 who presents with complaints of abdominal pain radiating to the back that started on which she reports is burning in nature. In January pt was admitted for acute pancreatitis which was treated with conservative management. CT did not show any GB pathology and no abd US was done at that time. She returns yesterday with abdominal pain Abdominal US shows thickened GB wass, stones and a dilated CBD without stones. PMH: Pancreatitis in 01/2018 HTN, Hypothyroidism, and a TIA PSH: 3 c-sections, b/l lumpectomy in - benign All: NKDA Social: denies tobacco, ETOH or drugs Review of Systems - Review of Systems All systems: reviewed and no additional remarkable complaints except - Constitutional Constitutional: absent: Anorexia, Chills - EENT Eyes: absent: Change in Vision Ears: absent: Ear Pain, Tinnitus - Cardiovascular Cardiovascular: absent: Chest Pain, Dyspnea - Respiratory Respiratory: absent: Cough, Dyspnea - Gastrointestinal Gastrointestinal: Abdominal Pain, Heartburn. absent: Hematemesis, Loose Stools - Genitourinary Genitourinary: absent: Change in Urinary Stream, Dysuria Past Patient History - Infectious Disease Hx of Infectious Diseases: None - Past Medical History & Family History Past Medical History?: Yes - Past Social History Smoking Status: Never Smoked - CARDIAC Hx Cardiac Disorders: Yes Hx Hypercholesterolemia: Yes Hx Hypertension: Yes - PULMONARY Hx Respiratory Disorders: No - NEUROLOGICAL Hx Neurological Disorder: Yes Hx Transient Ischemic Attacks (TIA): Yes (2009 ) Other/Comment: "Blood Clot in my brain" - HEENT Hx HEENT Problems: Yes Hx Cataracts: Yes (CATARACT REMOVAL RIGHT EYE 2015 ) Hx Deafness: Yes (R ear) Other/Comment: Bilateral Cataract Surgery - RENAL Hx Chronic Kidney Disease: No - ENDOCRINE/METABOLIC Hx Endocrine Disorders: Yes Hx Hyperthyroidism: Yes - HEMATOLOGICAL/ONCOLOGICAL Hx Blood Disorders: No - INTEGUMENTARY Hx Dermatological Problems: No - MUSCULOSKELETAL/RHEUMATOLOGICAL Hx Musculoskeletal Disorders: Yes Hx Falls: Yes (Dec 01) - GASTROINTESTINAL Hx Gastrointestinal Disorders: Yes Hx Gastroesophageal Reflux: Yes Other/Comment: CONSTIPATION. STOMACH ISSUES - GENITOURINARY/GYNECOLOGICAL Hx Genitourinary Disorders: No - PSYCHIATRIC Hx Psychophysiologic Disorder: Yes Hx Bipolar Disorder: Yes (No meds) Hx Substance Use: No - SURGICAL HISTORY Hx Surgeries: Yes Hx Cataract Extraction: Yes (RIGHT EYE 2015 ) Hx Section: Yes (3X) Other/Comment: bilateral breast lumpectomy in 1985 and 1986 - ANESTHESIA Hx Anesthesia: Yes Hx Anesthesia Reactions: No Hx Malignant Hyperthermia: No Has any member of the family had a problem w/ anesthesia?: No Meds Allergies/Adverse Reactions: Allergies Allergy/AdvReac Type Severity Reaction Status Date / Time No Known Allergies Allergy Unverified 03/29/18 19:32 - Medications Medications: Current Medications Amlodipine Besylate (Norvasc) 10 mg PO DAILY [facility] Last Admin: 03/30/18 10:45 Dose: 10 mg Hydrochlorothiazide (Hydrodiuril) 25 mg PO DAILY [facility] Last Admin: 03/30/18 10:45 Dose: 25 mg Lactated Ringer's (Lactated Ringer's) 1,000 mls @ 200 mls/hr IV .Q5H [facility] Last Admin: 03/30/18 07:42 Dose: 200 mls/hr Ceftriaxone Sodium (Rocephin Iv 1 Gm Duplex) 50 mls @ 100 mls/hr IVPB DAILY [facility] PRN Reason: Protocol Last Admin: 03/30/18 10:45 Dose: 100 mls/hr Levothyroxine Sodium (Synthroid) 75 mcg PO DAILY@0630 [facility] Last Admin: 03/30/18 06:01 Dose: 75 mcg Losartan Potassium (Cozaar) 50 mg PO QPM [facility] Pantoprazole Sodium (Protonix Ec Tab) 40 mg PO DAILY [facility] Last Admin: 03/30/18 10:45 Dose: 40 mg Physical Exam - Constitutional Appears: Non-toxic, No Acute Distress - Head Exam Head Exam: ATRAUMATIC, NORMOCEPHALIC - Eye Exam Eye Exam: EOMI, Normal appearance - ENT Exam ENT Exam: Mucous Membranes Moist - Respiratory Exam Respiratory Exam: NORMAL BREATHING PATTERN - Cardiovascular Exam Cardiovascular Exam: +S1, +S2 - GI/Abdominal Exam GI & Abdominal Exam: Soft. absent: Distended, Firm, Guarding, Hernia, Rigid Additional comments: Diffusely tender - Neurological Exam Neurological exam: Oriented x3 - Psychiatric Exam Psychiatric exam: Normal Affect, Normal Mood - Skin Skin Exam: Dry, Intact Results - Vital Signs Recent Vital Signs: Last Vital Signs Temp 97.7 F 03/30/18 07:45 Pulse 60 03/30/18 10:44 Resp 18 03/30/18 07:45 BP 113/72 03/30/18 10:44 Pulse Ox 97 03/30/18 07:45 - Labs Result Diagrams: 03/29/18 20:09 03/29/18 20:09 Labs: Laboratory Results - last 24 hr 03/29/18 03/29/18 03/29/18 20:09 20:09 20:09 WBC 7.4 D RBC 4.64 Hgb 13.2 Hct 39.5 MCV 85.1 MCH 28.5 MCHC 33.5 RDW 13.7 Plt Count 345 MPV 7.6 Neut % (Auto) 65.8 Lymph % (Auto) 23.5 [place] % (Auto) 7.6 Eos % (Auto) 2.5 Baso % (Auto) 0.6 Neut # (Auto) 4.9 Lymph # (Auto) 1.7 [place] # (Auto) 0.6 Eos # (Auto) 0.2 Baso # (Auto) 0.0 PT 13.1 H INR 1.2 APTT 42 H Sodium 139 Potassium 4.5 Chloride 98 Carbon Dioxide 28 Anion Gap 17 BUN 22 H Creatinine 1.0 Est GFR ( Amer) > 60 Est GFR (Non-Af Amer) 55 Random Glucose 98 Calcium 9.2 Total Bilirubin 1.3 AST 159 H D ALT 297 H D Alkaline Phosphatase 158 H D Troponin I 0.0200 Total Protein 9.4 H Albumin 4.7 Globulin 4.7 H Albumin/Globulin Ratio 1.0 Lipase 3551 H Alcohol, Quantitative 03/29/18 20:36 WBC RBC Hgb Hct MCV MCH MCHC RDW Plt Count MPV Neut % (Auto) Lymph % (Auto) [place] % (Auto) Eos % (Auto) Baso % (Auto) Neut # (Auto) Lymph # (Auto) [place] # (Auto) Eos # (Auto) Baso # (Auto) PT INR APTT Sodium Potassium Chloride Carbon Dioxide Anion Gap BUN Creatinine Est GFR ( Amer) Est GFR (Non-Af Amer) Random Glucose Calcium Total Bilirubin AST ALT Alkaline Phosphatase Troponin I Total Protein Albumin Globulin Albumin/Globulin Ratio Lipase Alcohol, Quantitative < 10 Assessment & Plan - Assessment and Plan (Free Text) Assessment: 67F with recurrent pancreatitis likely secondary to gallstones NPO IVF Pain control Continue management per GI Continue medical management Followup MRCP D/W Dr. Panchito Niño PGY2 <Shivam Flanagan - Last Filed: 03/31/18 18:22> Meds - Medications Medications: Current Medications Amlodipine Besylate (Norvasc) 10 mg PO DAILY [facility] Last Admin: 03/31/18 10:12 Dose: 10 mg Hydrochlorothiazide (Hydrodiuril) 25 mg PO DAILY [facility] Last Admin: 03/31/18 10:12 Dose: 25 mg Lactated Ringer's (Lactated Ringer's) 1,000 mls @ 200 mls/hr IV .Q5H [facility] Last Admin: 03/31/18 08:15 Dose: 200 mls/hr Ceftriaxone Sodium (Rocephin Iv 1 Gm Duplex) 50 mls @ 100 mls/hr IVPB DAILY [facility] PRN Reason: Protocol Last Admin: 03/31/18 10:12 Dose: 100 mls/hr Levothyroxine Sodium (Synthroid) 75 mcg PO DAILY@0630 [facility] Last Admin: 03/31/18 06:23 Dose: 75 mcg Losartan Potassium (Cozaar) 50 mg PO QPM [facility] Last Admin: 03/31/18 17:57 Dose: 50 mg Pantoprazole Sodium (Protonix Ec Tab) 40 mg PO DAILY [facility] Last Admin: 03/31/18 10:12 Dose: 40 mg Results - Vital Signs Recent Vital Signs: Last Vital Signs Temp 97.2 F L 03/31/18 15:45 Pulse 62 03/31/18 16:00 Resp 20 03/31/18 15:45 BP 136/81 03/31/18 15:45 Pulse Ox 96 03/31/18 15:45 - Labs Result Diagrams: 03/31/18 06:18 03/31/18 06:18 Labs: Laboratory Results - last 24 hr 03/31/18 03/31/18 03/31/18 06:18 06:18 06:18 WBC 4.8 RBC 4.16 Hgb 12.3 Hct 35.4 MCV 85.0 MCH 29.5 MCHC 34.7 RDW 13.5 Plt Count 278 MPV 7.0 L Neut % (Auto) 55.2 Lymph % (Auto) 32.6 [place] % (Auto) 7.1 Eos % (Auto) 4.3 H Baso % (Auto) 0.8 Neut # (Auto) 2.6 Lymph # (Auto) 1.6 [place] # (Auto) 0.3 Eos # (Auto) 0.2 Baso # (Auto) 0.0 PT 13.9 H INR 1.3 Sodium 140 Potassium 3.6 Chloride 100 Carbon Dioxide 30 Anion Gap 13 BUN 8 Creatinine 0.8 Est GFR ( Amer) > 60 Est GFR (Non-Af Amer) > 60 Random Glucose 71 Calcium 9.2 Total Bilirubin 0.8 AST 55 H D ALT 163 H D Alkaline Phosphatase 109 Total Protein 7.2 Albumin 3.5 D Globulin 3.7 Albumin/Globulin Ratio 0.9 L Attending/Attestation - Attestation I have personally seen and examined this patient.: Yes I have fully participated in the care of the patient.: Yes I have reviewed all pertinent clinical information: Yes Notes (Text): Pt was seen and examined at bedside Agree with above note and assessment Pt with epigastric pain and tenderness LFTs and Lipase is elevated Labs and radiology reviewed Ass: Gallstone Pancreatitis Plan: C.w IV antibiotics Repeat LFTs in am MRCP GI consult Plan d.w pt in detail Risk and benefit explained in detail.
[2018-03-31] MEDS: Lactated Ringer's 1,000 ML IV SCH ×3 (03:05→18:22)
[2018-03-31] MEDS: Levothyroxine 75 MCG TAB PO SCH (06:23)
[2018-03-31 06:31] LABS: BASO % 0.8 % (0.0-2.0); EOS # 0.2 K/uL (0.0-0.7); EOS % 4.3 % (0.0-4.0); HEMOGLOBIN 12.3 g/dL (11.0-16.0); LYMPH # 1.6 K/uL (1.0-4.3); LYMPH % 32.6 % (20.0-40.0); MEAN CORPUSCULAR HEMOGLOBIN 29.5 pg (27.0-31.0); MEAN CORPUSCULAR HGB CONC 34.7 g/dL (33.0-37.0); MONO # 0.3 K/uL (0.0-0.8); MONO % 7.1 % (0.0-10.0); NEUT # 2.6 K/uL (1.8-7.0); NEUT % 55.2 % (50.0-75.0); NRBC % 0.1 % (0.0-2.0); RBC 4.16 Mil/uL (3.80-5.20); RED CELL DISTRIBUTION WIDTH 13.5 % (11.5-14.5); WHITE BLOOD COUNT 4.8 K/uL (4.8-10.8)
[2018-03-31 06:32] LABS: INR 1.3; PROTHROMBIN TIME 13.9 SECONDS (9.7-12.2)
[2018-03-31 06:50] LABS: ALB/GLOB RATIO 0.9 (1.0-2.1); ALBUMIN 3.5 g/dL (3.5-5.0); ALT/SGPT 163 U/L (9-52); AST/SGOT 55 U/L (14-36); BLOOD UREA NITROGEN 8 mg/dL (7-17); CALCIUM 9.2 mg/dl (8.6-10.4); GFR AFRICAN-AMERICAN > 60; GFR NON-AFRICAN AMERICAN > 60
[2018-03-31] MEDS: Pantoprazole 40 mg EC Tab PO SCH (10:12)
[2018-03-31] MEDS: cefTRIAXone IV 1 gm in Dextros 50 ML IVPB SCH (10:12)
--- NOTE | 2018-03-31 10:56 | CP.PCM.PCO ---
Physician Communication Note - Physician Communication Note Physician Communication Note: Unable to see patient. Away to MRCP
[2018-03-31] MEDS ORDERED: Gadodiamide 287 mg/ml 20 ml IV ONE (11:32)
--- NOTE | 2018-03-31 12:57 | CP.PCM.PN ---
<Timi Bruce - Last Filed: 03/31/18 12:54> Subjective - Date & Time of Evaluation Date of Evaluation: 03/31/18 Time of Evaluation: 07:00 - Subjective Subjective: SURGERY NOTE FOR DR. FLANAGAN 67F seen and examined at bedside. Patient continues to have epigastric and RUQ tenderness, denies nausea and vomiting. Objective - Vital Signs/Intake and Output Vital Signs (last 24 hours): Temp Pulse Resp BP Pulse Ox 97.8 F 59 L 18 133/81 98 03/31/18 07:30 03/31/18 10:11 03/31/18 07:30 03/31/18 10:11 03/31/18 07:30 Intake and Output: 03/31/18 03/31/18 06:59 18:59 Intake Total 1600 Balance 1600 - Medications Medications: Current Medications Amlodipine Besylate (Norvasc) 10 mg PO DAILY [facility] Last Admin: 03/31/18 10:12 Dose: 10 mg Hydrochlorothiazide (Hydrodiuril) 25 mg PO DAILY [facility] Last Admin: 03/31/18 10:12 Dose: 25 mg Lactated Ringer's (Lactated Ringer's) 1,000 mls @ 200 mls/hr IV .Q5H [facility] Last Admin: 03/31/18 08:15 Dose: 200 mls/hr Ceftriaxone Sodium (Rocephin Iv 1 Gm Duplex) 50 mls @ 100 mls/hr IVPB DAILY [facility] PRN Reason: Protocol Last Admin: 03/31/18 10:12 Dose: 100 mls/hr Levothyroxine Sodium (Synthroid) 75 mcg PO DAILY@0630 [facility] Last Admin: 03/31/18 06:23 Dose: 75 mcg Losartan Potassium (Cozaar) 50 mg PO QPM [facility] Last Admin: 03/30/18 21:21 Dose: 50 mg Pantoprazole Sodium (Protonix Ec Tab) 40 mg PO DAILY [facility] Last Admin: 03/31/18 10:12 Dose: 40 mg - Labs Labs: 03/31/18 06:18 03/31/18 06:18 PT 13.9 SECONDS (9.7-12.2) H 03/31/18 06:18 INR 1.3 03/31/18 06:18 APTT 42 SECONDS (21-34) H 03/29/18 20:09 - Constitutional Appears: Non-toxic, No Acute Distress - Respiratory Exam Respiratory Exam: Clear to Ausculation Bilateral, NORMAL BREATHING PATTERN - Cardiovascular Exam Cardiovascular Exam: REGULAR RHYTHM, +S1, +S2 - GI/Abdominal Exam GI & Abdominal Exam: Soft, Tenderness. absent: Distended, Firm, Guarding, Rigid , Rebound - Extremities Exam Extremities Exam: absent: Pedal Edema, Tenderness - Neurological Exam Neurological Exam: Alert, Awake - Skin Skin Exam: Dry, Intact, Normal Color, Warm Assessment and Plan - Assessment and Plan (Free Text) Assessment: 67F with gallstone pancreatitis Plan: NPO, IVF Pain control await MRCP report Plan for OR saturday Discussed with Dr. Panchito Bruce, PGY2 <Shivam Flanagan - Last Filed: 03/31/18 18:30> Objective - Vital Signs/Intake and Output Vital Signs (last 24 hours): Temp Pulse Resp BP Pulse Ox 97.2 F L 62 20 136/81 96 03/31/18 15:45 03/31/18 16:00 03/31/18 15:45 03/31/18 15:45 03/31/18 15:45 Intake and Output: 03/31/18 03/31/18 06:59 18:59 Intake Total 1600 1600 Balance 1600 1600 - Medications Medications: Current Medications Amlodipine Besylate (Norvasc) 10 mg PO DAILY [facility] Last Admin: 03/31/18 10:12 Dose: 10 mg Hydrochlorothiazide (Hydrodiuril) 25 mg PO DAILY [facility] Last Admin: 03/31/18 10:12 Dose: 25 mg Lactated Ringer's (Lactated Ringer's) 1,000 mls @ 200 mls/hr IV .Q5H [facility] Last Admin: 03/31/18 18:22 Dose: Not Given Ceftriaxone Sodium (Rocephin Iv 1 Gm Duplex) 50 mls @ 100 mls/hr IVPB DAILY [facility] PRN Reason: Protocol Last Admin: 03/31/18 10:12 Dose: 100 mls/hr Levothyroxine Sodium (Synthroid) 75 mcg PO DAILY@0630 [facility] Last Admin: 03/31/18 06:23 Dose: 75 mcg Losartan Potassium (Cozaar) 50 mg PO QPM [facility] Last Admin: 03/31/18 17:57 Dose: 50 mg Pantoprazole Sodium (Protonix Ec Tab) 40 mg PO DAILY [facility] Last Admin: 03/31/18 10:12 Dose: 40 mg - Labs Labs: 03/31/18 06:18 03/31/18 06:18 PT 13.9 SECONDS (9.7-12.2) H 03/31/18 06:18 INR 1.3 03/31/18 06:18 APTT 42 SECONDS (21-34) H 18 20:09 Attending/Attestation - Attestation I have personally seen and examined this patient.: Yes I have fully participated in the care of the patient.: Yes I have reviewed all pertinent clinical information, including history, physical exam and plan: Yes Notes (Text): Pt was seen and examined at bedside Agree with above note and assessment Pt is improving clinically MRCP is negative for CBD stones Repeat Lipase in am C.w current mx Plan d.w pt in detail
--- NOTE | 2018-03-31 15:56 | MRI ---
PROCEDURE: Magnetic Resonance Cholangiopancreatography and MRI abdomen with and without gadolinium HISTORY: COMPARISON: None available. TECHNIQUE: Multiplanar, multisequence MR images of the abdomen were obtained, including heavily T2 weighted MRCP images of the biliary system. Rotating maximum intensity projection images of the biliary system were generated. The examination was performed both with and without intravenous gadolinium administration. FINDINGS: MRCP: The common bile duct is of a normal caliber. No evidence of choledocholithiasis. No intrahepatic biliary ductal dilatation. LIVER: 6 mm cyst in the dome of the lateral segment left hepatic lobe. No other mass. Smooth contour. No abnormal enhancement. GALLBLADDER: Diffusely thickened gallbladder wall. Cholelithiasis. No pericholecystic fluid. Findings are equivocal for cholecystitis. SPLEEN: Unremarkable. PANCREAS: No mass. No abnormal enhancement. No ductal dilatation. No peripancreatic fluid/ edema. ADRENALS: Unremarkable. KIDNEYS: 7 mm right upper pole renal cortical cyst. No other mass. No hydronephrosis. AORTA: No aneurysm. ASCITES: None. OTHER FINDINGS: None. IMPRESSION: Cholelithiasis with nonspecific mural thickening of the gallbladder. No pericholecystic fluid. No evidence of biliary obstruction. No evidence of choledocholithiasis. No evidence of acute pancreatitis.
--- NOTE | 2018-03-31 20:27 | HP ---
The patient was seen and examined at bed side on 03/30/18. CHIEF COMPLAINT: Chest pain. HISTORY OF PRESENT ILLNESS: Ms. Paul is a 67-year-old female who came to the emergency department with epigastric pain associated with chest pain. The patient reports that she had similar pain for the last couple of days. The patient states that she still drinks a bottle a day. The patient denies fever, chills, nausea, vomiting, diarrhea, hematochezia. No swelling of the legs. PAST MEDICAL HISTORY: Depression, hypertension, hypercholesterolemia, hyperthyroidism, and TIA. FAMILY HISTORY: Unknown family history. HABITS: Alcohol, yes. Substance abuse, no. Smoking, no. REVIEW OF SYSTEMS: The patient is seen in her room, looking comfortable. No fever, no chills, no vision changes. Positive for chest pain and epigastric pain. No cough, shortness of breath. No nausea, vomiting, or diarrhea. No rash. No weakness, no anxiety. PHYSICAL EXAMINATION: VITAL SIGNS: Temperature 98.4, pulse 74, respiratory rate 18, blood pressure 144/88. HEENT: Head: Normocephalic, atraumatic. Eyes: PERRLA. Extraocular movements intact. Conjunctiva clear. Nose: Patent. Mucous membranes moist. NECK: Supple. No carotid bruits or thyromegaly. CHEST: Bilaterally symmetrical. HEART: S1 and S2 positive. LUNGS: Clear to auscultation. ABDOMEN: Soft, bowel sounds present. No organomegaly. EXTREMITIES: No edema, no cyanosis. NEUROLOGIC: The patient is awake, alert, moving all four extremities. No focal deficit. LABORATORY DATA: White blood cell 7.4, hemoglobin 13.2, hematocrit 39.5, platelets 345. Sodium 139, potassium 4.5, BUN 22, creatinine 1.0. Glucose 98. ASSESSMENT AND PLAN: Ms. Paul is a 67-year-old lady, came with gastric pain, rule out pancreatitis, depression, hypertension, hypercholesterolemia, hyperthyroidism, transient ischemic attack, gastroesophageal reflux disease, dyspepsia. Did chest x-ray, abdominal ultrasound. Seen by Dr. Macario, GI. History of cholecystitis and adenomyomatosis. GI suggested surgical consult. The patient has pancreatitis ,due to gallstone. Hepatitis serology negative. Intravenous fluids given. MRCP to rule out ductal dilatation and stones. Dr. Flanagan's consult called, Surgery. Pain control. Gastrointestinal and deep venous thrombosis prophylaxis. We will follow. Monisha Lagos MD MTDD
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
[2018-04-01] MEDS: Lactated Ringer's 1,000 ML IV SCH ×4 (03:25→18:20)
[2018-04-01] MEDS: Levothyroxine 75 MCG TAB PO SCH (06:11)
[2018-04-01 07:09] LABS: ALBUMIN 3.7 g/dL (3.5-5.0); ALT/SGPT 136 U/L (9-52); AST/SGOT 46 U/L (14-36); BLOOD UREA NITROGEN 7 mg/dL (7-17); CALCIUM 9.1 mg/dl (8.6-10.4); GFR AFRICAN-AMERICAN > 60; GFR NON-AFRICAN AMERICAN > 60
[2018-04-01 07:14] LABS: LIPASE 179 U/L (23-300)
--- NOTE | 2018-04-01 07:38 | CP.PCM.PN ---
<Coty Birch - Last Filed: 04/01/18 08:54> Subjective - Date & Time of Evaluation Date of Evaluation: 04/01/18 Time of Evaluation: 07:00 - Subjective Subjective: GI Fellow PGY4 Progress Note Pt seen and examined at bedside, pain is a little better. No fevers or chills, no N/V. Tolerated liquid diet last night. ROS: A 12pt ROS was negative except as above. Objective - Vital Signs/Intake and Output Vital Signs (last 24 hours): Temp Pulse Resp BP Pulse Ox 97.7 F 57 L 20 138/82 98 03/31/18 23:23 04/01/18 04:16 03/31/18 23:23 03/31/18 23:23 03/31/18 23:23 - Medications Medications: Current Medications Amlodipine Besylate (Norvasc) 10 mg PO DAILY [facility] Last Admin: 03/31/18 10:12 Dose: 10 mg Hydrochlorothiazide (Hydrodiuril) 25 mg PO DAILY [facility] Last Admin: 03/31/18 10:12 Dose: 25 mg Ceftriaxone Sodium (Rocephin Iv 1 Gm Duplex) 50 mls @ 100 mls/hr IVPB DAILY [facility] PRN Reason: Protocol Last Admin: 03/31/18 10:12 Dose: 100 mls/hr Lactated Ringer's (Lactated Ringer's) 1,000 mls @ 100 mls/hr IV .Q10H [facility] Last Admin: 04/01/18 06:39 Dose: 100 mls/hr Levothyroxine Sodium (Synthroid) 75 mcg PO DAILY@0630 [facility] Last Admin: 04/01/18 06:11 Dose: 75 mcg Losartan Potassium (Cozaar) 50 mg PO QPM [facility] Last Admin: 03/31/18 17:57 Dose: 50 mg Pantoprazole Sodium (Protonix Ec Tab) 40 mg PO DAILY [facility] Last Admin: 03/31/18 10:12 Dose: 40 mg - Labs Labs: 03/31/18 06:18 04/01/18 06:06 PT 13.9 SECONDS (9.7-12.2) H 03/31/18 06:18 INR 1.3 03/31/18 06:18 APTT 42 SECONDS (21-34) H 03/29/18 20:09 - Constitutional Appears: Non-toxic, No Acute Distress - Head Exam Head Exam: ATRAUMATIC, NORMAL INSPECTION, NORMOCEPHALIC - Eye Exam Eye Exam: EOMI, Normal appearance, PERRL Pupil Exam: PERRL - ENT Exam ENT Exam: Mucous Membranes Moist - Neck Exam Neck Exam: Full ROM, Normal Inspection - Respiratory Exam Respiratory Exam: Clear to Ausculation Bilateral, NORMAL BREATHING PATTERN - Cardiovascular Exam Cardiovascular Exam: REGULAR RHYTHM, +S1, +S2 - GI/Abdominal Exam GI & Abdominal Exam: Soft, Normal Bowel Sounds. absent: Distended, Tenderness, Organomegaly - Extremities Exam Extremities Exam: Full ROM, Normal Inspection - Back Exam Back Exam: NORMAL INSPECTION - Neurological Exam Neurological Exam: Alert, Awake, Oriented x3 - Psychiatric Exam Psychiatric exam: Normal Affect, Normal Mood - Skin Skin Exam: Dry, Intact, Normal Color, Warm Assessment and Plan - Assessment and Plan (Free Text) Assessment: This is a 67yF presenting with complaints of epigastric abdominal pain. 1. Acute cholecystitis 2. Cholethiaisis 3. Elevated LFTs 4. Pancreatitis-possible gallstone pancreatitis Plan: -Continue supportive care with pain control and anti-emetics -Abd US with gallstones and cholecystitis -IV abx Rocephin -Elevated LFTs trending down -Trend LFTs -MRCP negative for duct dilation/stone, no pancreatitis, +gallstones and gallbladder thickening -Diet per surgery -IVF hydration with LR@ 100 -Monitor BUN/Hct -Appreciate surgical consult plan for lap abi -No GI intervention at this time -Please call with any questions or concerns <Dakota Urbano - Last Filed: 04/01/18 09:07> Objective - Vital Signs/Intake and Output Vital Signs (last 24 hours): Temp Pulse Resp BP Pulse Ox 98.3 F 63 18 121/79 99 04/01/18 07:30 04/01/18 07:30 04/01/18 07:30 04/01/18 07:30 04/01/18 07:30 - Medications Medications: Current Medications Amlodipine Besylate (Norvasc) 10 mg PO DAILY [facility] Last Admin: 03/31/18 10:12 Dose: 10 mg Hydrochlorothiazide (Hydrodiuril) 25 mg PO DAILY [facility] Last Admin: 03/31/18 10:12 Dose: 25 mg Ceftriaxone Sodium (Rocephin Iv 1 Gm Duplex) 50 mls @ 100 mls/hr IVPB DAILY [facility] PRN Reason: Protocol Last Admin: 03/31/18 10:12 Dose: 100 mls/hr Lactated Ringer's (Lactated Ringer's) 1,000 mls @ 100 mls/hr IV .Q10H [facility] Last Admin: 04/01/18 06:39 Dose: 100 mls/hr Levothyroxine Sodium (Synthroid) 75 mcg PO DAILY@0630 [facility] Last Admin: 04/01/18 06:11 Dose: 75 mcg Losartan Potassium (Cozaar) 50 mg PO QPM [facility] Last Admin: 03/31/18 17:57 Dose: 50 mg Pantoprazole Sodium (Protonix Ec Tab) 40 mg PO DAILY [facility] Last Admin: 03/31/18 10:12 Dose: 40 mg - Labs Labs: 03/31/18 06:18 04/01/18 06:06 PT 13.9 SECONDS (9.7-12.2) H 03/31/18 06:18 INR 1.3 03/31/18 06:18 APTT 42 SECONDS (21-34) H 03/29/18 20:09 Attending/Attestation - Attestation I have personally seen and examined this patient.: Yes I have fully participated in the care of the patient.: Yes I have reviewed all pertinent clinical information, including history, physical exam and plan: Yes Notes (Text): 04/01/18 09:05 I have seen and examined patient with GI fellow. No acute events overnight, she is seen resting comfortably in chair next to bed. Her abdominal pain has significantly improved and she denies nausea, vomiting, fever/chills. Tolerating PO liquids without difficulty. Abdominal pain Transaminitis - acute cholecystitis Cholelithiasis - Liquid diet as tolerated - Continue with antibiotic therapy - LFTs trending down, continue to monitor - MRCP reviewed by me showing no evidence of choledocholithiasis, +GB wall edema and akua-cholecystic fluid - Follow up surgical recommendations regarding timing of cholecystectomy - No further planned GI intervention, will sign off case. Please reconsult as necessary, thank you.
[2018-04-01] MEDS: Pantoprazole 40 mg EC Tab PO SCH (10:01)
[2018-04-01] MEDS: cefTRIAXone IV 1 gm in Dextros 50 ML IVPB SCH (10:01)
--- NOTE | 2018-04-01 12:11 | CARD ---
APPROVED REPORT EKG Measurement Heart [id number] <Conclusion> Normal sinus rhythm Nonspecific T wave abnormality Abnormal ECG
--- NOTE | 2018-04-01 16:00 | CP.PCM.PN ---
<Steven Niño - Last Filed: 04/01/18 15:56> Subjective - Date & Time of Evaluation Date of Evaluation: 04/01/18 Time of Evaluation: 07:00 - Subjective Subjective: General Surgery Progress Note for Dr. Flanagan This 67F was seen and examined this AM at bedside. No acute events reported overnight,. The patient reports significant improvement in her abdominal pain. She has clear liquids ordered however she did not try any yet. She denies fevers , chills, chest pain, nause vomiting or diarrhea, Objective - Vital Signs/Intake and Output Vital Signs (last 24 hours): Temp Pulse Resp BP Pulse Ox 98.3 F 60 18 151/82 H 99 04/01/18 07:30 04/01/18 09:59 04/01/18 07:30 04/01/18 09:59 04/01/18 07:30 - Medications Medications: Current Medications Amlodipine Besylate (Norvasc) 10 mg PO DAILY [facility] Last Admin: 04/01/18 10:01 Dose: 10 mg Hydrochlorothiazide (Hydrodiuril) 25 mg PO DAILY [facility] Last Admin: 04/01/18 10:01 Dose: 25 mg Ceftriaxone Sodium (Rocephin Iv 1 Gm Duplex) 50 mls @ 100 mls/hr IVPB DAILY [facility] PRN Reason: Protocol Last Admin: 04/01/18 10:01 Dose: 100 mls/hr Lactated Ringer's (Lactated Ringer's) 1,000 mls @ 100 mls/hr IV .Q10H [facility] Last Admin: 04/01/18 10:06 Dose: 100 mls/hr Levothyroxine Sodium (Synthroid) 75 mcg PO DAILY@0630 [facility] Last Admin: 04/01/18 06:11 Dose: 75 mcg Losartan Potassium (Cozaar) 50 mg PO QPM [facility] Last Admin: 03/31/18 17:57 Dose: 50 mg Pantoprazole Sodium (Protonix Ec Tab) 40 mg PO DAILY [facility] Last Admin: 04/01/18 10:01 Dose: 40 mg - Labs Labs: 03/31/18 06:18 04/01/18 06:06 PT 13.9 SECONDS (9.7-12.2) H 03/31/18 06:18 INR 1.3 03/31/18 06:18 APTT 42 SECONDS (21-34) H 03/29/18 20:09 - Constitutional Appears: Non-toxic, No Acute Distress - Head Exam Head Exam: ATRAUMATIC, NORMOCEPHALIC - Eye Exam Eye Exam: EOMI. absent: Scleral icterus - Respiratory Exam Respiratory Exam: NORMAL BREATHING PATTERN - Cardiovascular Exam Cardiovascular Exam: +S1, +S2 - GI/Abdominal Exam GI & Abdominal Exam: Soft. absent: Distended, Firm, Guarding, Rigid, Tenderness - Neurological Exam Neurological Exam: Alert, Awake - Psychiatric Exam Psychiatric exam: Normal Affect, Normal Mood - Skin Skin Exam: Dry, Intact Assessment and Plan - Assessment and Plan (Free Text) Assessment: This is a 67F with gallstone pancreatitis which is resolving NPO pats midnight AM CBC, CMP, Coags Plan or OR tomorrow for robotic cholecystectomy Further recs per Dr. Panchito Niño PGY2 <Shivam Flanagan - Last Filed: 04/02/18 17:40> Objective - Vital Signs/Intake and Output Vital Signs (last 24 hours): Temp Pulse Resp BP Pulse Ox 97.3 F L 69 18 116/71 98 04/02/18 15:25 04/02/18 15:25 04/02/18 15:25 04/02/18 15:25 04/02/18 15:25 Intake and Output: 04/02/18 04/02/18 06:59 18:59 Intake Total 1400 Balance 1400 - Medications Medications: Current Medications Amlodipine Besylate (Norvasc) 10 mg PO DAILY [facility] Last Admin: 04/02/18 13:20 Dose: Not Given Hydrochlorothiazide (Hydrodiuril) 25 mg PO DAILY [facility] Last Admin: 04/02/18 13:20 Dose: Not Given Ceftriaxone Sodium (Rocephin Iv 1 Gm Duplex) 50 mls @ 100 mls/hr IVPB DAILY [facility] PRN Reason: Protocol Last Admin: 04/02/18 12:03 Dose: 100 mls/hr Lactated Ringer's (Lactated Ringer's) 1,000 mls @ 100 mls/hr IV .Q10H [facility] Last Admin: 04/02/18 12:13 Dose: Not Given Levothyroxine Sodium (Synthroid) 75 mcg PO DAILY@0630 [facility] Last Admin: 04/02/18 05:54 Dose: 75 mcg Losartan Potassium (Cozaar) 50 mg PO QPM [facility] Last Admin: 04/01/18 18:28 Dose: 50 mg Oxycodone/Acetaminophen (Percocet 5/325 Mg Tab) 1 tab PO Q4H [facility] PRN Reason: Pain, moderate (4-7) Stop: 04/05/18 12:32 Last Admin: 04/02/18 16:21 Dose: 1 tab Pantoprazole Sodium (Protonix Ec Tab) 40 mg PO DAILY [facility] Last Admin: 04/02/18 13:21 Dose: Not Given - Labs Labs: 04/02/18 07:06 04/02/18 07:06 PT 13.9 SECONDS (9.7-12.2) H 03/31/18 06:18 INR 1.3 03/31/18 06:18 APTT 42 SECONDS (21-34) H 03/29/18 20:09 Attending/Attestation - Attestation I have personally seen and examined this patient.: Yes I have fully participated in the care of the patient.: Yes I have reviewed all pertinent clinical information, including history, physical exam and plan: Yes Notes (Text): Pt was seen and examined at bedside Agree with above note and assessment Pt with Abdominal pain and GS pancreatitis Abdomen: soft, tender, No peritoneal signs Labs and radiology reviewed. Ass: Resolving GS pancreatitis, Cholelithiasis Plan: OR for Lap cholecystectomy tomorrow Consent NPO, IVF IV antibiotics Plan d.w pt in detail Risk and benefit explained in detail.
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
[2018-04-02 01:56] LABS: IGG SUBCLASS 4 49.9 mg/dL (4.0-86.0)
[2018-04-02] MEDS: Lactated Ringer's 1,000 ML IV SCH ×4 (02:33→22:25)
[2018-04-02] MEDS: Levothyroxine 75 MCG TAB PO SCH (05:54)
[2018-04-02 07:15] LABS: BASO % 0.7 % (0.0-2.0); EOS # 0.2 K/uL (0.0-0.7); EOS % 3.9 % (0.0-4.0); HEMOGLOBIN 13.9 g/dL (11.0-16.0); LYMPH # 2.4 K/uL (1.0-4.3); LYMPH % 42.3 % (20.0-40.0); MEAN CELL VOLUME 85.3 fL (81.0-99.0); MEAN CORPUSCULAR HEMOGLOBIN 29.3 pg (27.0-31.0); MEAN CORPUSCULAR HGB CONC 34.3 g/dL (33.0-37.0); MONO # 0.4 K/uL (0.0-0.8); MONO % 7.1 % (0.0-10.0); NEUT # 2.6 K/uL (1.8-7.0); NRBC % 0.1 % (0.0-2.0); RBC 4.74 Mil/uL (3.80-5.20); RED CELL DISTRIBUTION WIDTH 13.5 % (11.5-14.5); WHITE BLOOD COUNT 5.7 K/uL (4.8-10.8)
[2018-04-02] MEDS ORDERED: Lidocaine/Epinephrine 1% 1:100000 10 ML IJ ONE (07:23)
[2018-04-02] MEDS ORDERED: ceFAZolin 1 gm FROZEN Premix 1 GM/50 ML ML IVPB ONE (07:23)
[2018-04-02] MEDS ORDERED: Bupivacaine HCl 0.25% PF (30 ml) Inj ONE (07:44)
[2018-04-02] MEDS ORDERED: Propofol 10 mg/ml Inj (20 ML) ONE (07:49)
[2018-04-02] MEDS ORDERED: Midazolam 2 MG/2 ML VIAL ONE (07:53)
[2018-04-02] MEDS ORDERED: Phenylephrine 10 mg/ml Inj ONE (08:00)
[2018-04-02 08:12] LABS: ALBUMIN 4.4 g/dL (3.5-5.0); ALT/SGPT 127 U/L (9-52); AST/SGOT 59 U/L (14-36); BLOOD UREA NITROGEN 6 mg/dL (7-17); CALCIUM 9.5 mg/dl (8.6-10.4); GFR AFRICAN-AMERICAN > 60; GFR NON-AFRICAN AMERICAN > 60
[2018-04-02] MEDS ORDERED: Neostigmine Methylsulfate 3mg/3ml Syringe IV ONE (09:07)
--- NOTE | 2018-04-02 09:31 | PCM.SURG1 ---
Surgeon's Initial Post Op Note - Surgeon's Notes Surgeon: Bisi Flanagan MD Contact Center Director: SPENSER Lynn Type of Anesthesia: General Endo Pre-Operative Diagnosis: GS Pancreatitis. Chronic Cholecystitis and Cholelithiasis Operative Findings: Chronic Cholecystitis and Cholelithiasis Post-Operative Diagnosis: GS Pancreatitis. Chronic Cholecystitis and Cholelithiasis Operation Performed: Robotic Cholecystectomy Specimen/Specimens Removed: Gall Bladder Estimated Blood Loss: EBL {In ML}: 10 Blood Products Given: N/A Drains Used: No Drains Post-Op Condition: Good Date of Surgery/Procedure: 04/02/18 Time of Surgery/Procedure: 09:31
[2018-04-02] MEDS: HYDROmorphone 0.5 mg/0.5 ml ISec IVP PRN ×3 (09:37→10:40)
[2018-04-02] MEDS ORDERED: Lactated Ringer's 1,000 ML IV ONE (10:10)
[2018-04-02] MEDS: cefTRIAXone IV 1 gm in Dextros 50 ML IVPB SCH (12:03)
[2018-04-02] MEDS: Pantoprazole 40 mg EC Tab PO SCH (13:21)
[2018-04-02] MEDS: Oxycodone/Acetaminophen 5/325 mg Tab PO PRN (16:21)
--- NOTE | 2018-04-02 20:38 | OP ---
PROCEDURE DATE: 04/02/2018 PREOPERATIVE DIAGNOSES: 1. Gallstone pancreatitis. 2. Chronic cholecystitis and cholelithiasis. POSTOPERATIVE DIAGNOSES: 1. Gallstone pancreatitis. 2. Chronic cholecystitis and cholelithiasis. PROCEDURE DONE: Robotic cholecystectomy. SURGEON: Shivam Flanagan MD SUPERVISOR SEWER MAINTENANCE: ALICIA Lynn TYPE OF ANESTHESIA: General endotracheal tube anesthesia. ESTIMATED BLOOD LOSS: Around 10 mL. DRAINS: None. PATHOLOGY: Gallbladder with gallstones was sent to the pathology. COMPLICATIONS: None. INTRAOPERATIVE FINDINGS: The patient had changes of chronic cholecystitis and cholelithiasis. DESCRIPTION OF PROCEDURE: On intraoperative steps, this is a 67-year-old female who was diagnosed with gallstone pancreatitis. The patient was consented for the robotic cholecystectomy possible open, brought to the OR, placed supine on the operating table. After induction of the anesthesia, abdomen was prepped and draped in usual sterile fashion. The supraumbilical transverse incision was made after incising the skin and subcutaneous tissue and the fascia. The robotic camera port was placed. Pneumo was created. Another 3/8 mm port was placed in upper abdomen. Robot was brought in. Camera arm as well as arm 1 and arm 2 was docked, and the gallbladder was retracted cranially. Calot's triangle dissection was done. Cystic duct and cystic artery was identified. Intraoperative Firefly was used to identify the ductal anatomy. Cystic duct, common bile duct junction was identified, and the critical view of the safety was also identified. The top down approach was done to further mobilize the Calot's triangle. The cystic duct and cystic artery was clipped at 3 clips and cut in between two clips in the gallbladder, and gallbladder was dissected free from the gallbladder fossa, taken in Endocatch, taken out through the umbilical port site, and was sent off the table for pathology. There was proper hemostasis in each and every part of the procedure. All instruments were taken out. Robot was undocked. The specimen was sent off the table for the pathology. The umbilical port site was closed in two layers, the fascia of the 0 Vicryl into the suture, skin with the 4-0 Monocryl, and dry sterile dressing was applied. The patient tolerated the procedure well. Count of instrument and gauze was correct. There was no apparent complication. The patient was extubated in the OR, sent to the postanesthesia care unit in stable condition. Shivam Flanagan MD [facility] # [id number]
--- NOTE | 2018-04-03 02:59 | PN ---
DATE: 04/02/2018 SUBJECTIVE: The patient is a 67-year-old female. The patient was seen and examined at bedside on 04/02/2018, looking comfortable. After cholecystectomy, abdomen is tender. No nausea, vomiting or diarrhea. No headache dizziness. No fever or chills. PHYSICAL EXAMINATION: VITAL SIGNS: Temperature 97.6, pulse 69, blood pressure 116/71, respiratory rate 18. HEENT: Head: Normocephalic, atraumatic. Eyes: PERRLA. Extraocular muscles intact. Conjunctivae clear. Nose: Patent. Mucous membranes moist. NECK: Supple. No carotid bruits, JVD or thyromegaly. CHEST: Bilaterally symmetrical. HEART: S1 and S2 positive. LUNGS: Clear to auscultation. ABDOMEN: Soft, tender at surgical site. NEUROLOGIC: The patient is awake, alert. Moving all four extremities. No focal deficit. EXTREMITIES: No edema, no cyanosis. MEDICATIONS: Cozaar, hydrochlorothiazide, lactated Ringer's, Norvasc, Percocet, Protonix, Rocephin, and Synthroid. LABORATORY DATA: White blood cell 5.4, hemoglobin 13.9, hematocrit 48.5, platelets 349. Sodium 142, potassium 3.5, BUN 16, creatinine 0.9. Liver function tests trending down, AST 59, ALT 127. ASSESSMENT AND PLAN: Ms. Humberto Delgado is a 67-year-old lady with hypokalemia, replaced; abnormal liver function tests, trending down; alcohol level less than 10; underwent surgery cholecystectomy by Dr. Flanagan. Gastrointestinal and deep venous thrombosis prophylaxis. Repeat labs. We will follow up. The patient's daughter was sitting on the bedside. All her questions answered. Monisha Lagos MD
[2018-04-03] MEDS: Oxycodone/Acetaminophen 5/325 mg Tab PO PRN ×2 (06:22→14:45)
[2018-04-03] MEDS: Levothyroxine 75 MCG TAB PO SCH (06:22)
[2018-04-03] MEDS ORDERED: Dextrose 5%/0.45% NS 1,000 ML IV SCH (08:00)
[2018-04-03] MEDS: Lactated Ringer's 1,000 ML IV SCH (08:40)
[2018-04-03] MEDS: cefTRIAXone IV 1 gm in Dextros 50 ML IVPB SCH (09:14)
[2018-04-03] MEDS: Pantoprazole 40 mg EC Tab PO SCH (09:20)
[2018-04-03 11:23] LABS: BASO % 0.4 % (0.0-2.0); EOS # 0.1 K/uL (0.0-0.7); EOS % 1.8 % (0.0-4.0); HEMOGLOBIN 12.3 g/dL (11.0-16.0); LYMPH # 1.6 K/uL (1.0-4.3); LYMPH % 27.4 % (20.0-40.0); MEAN CELL VOLUME 85.9 fL (81.0-99.0); MEAN CORPUSCULAR HEMOGLOBIN 29.1 pg (27.0-31.0); MEAN CORPUSCULAR HGB CONC 33.9 g/dL (33.0-37.0); MONO # 0.4 K/uL (0.0-0.8); MONO % 6.5 % (0.0-10.0); NEUT # 3.7 K/uL (1.8-7.0); NEUT % 63.9 % (50.0-75.0); RBC 4.22 Mil/uL (3.80-5.20); RED CELL DISTRIBUTION WIDTH 13.8 % (11.5-14.5); WHITE BLOOD COUNT 5.8 K/uL (4.8-10.8)
[2018-04-03 11:40] LABS: ALBUMIN 3.7 g/dL (3.5-5.0); ALT/SGPT 144 U/L (9-52); AST/SGOT 111 U/L (14-36); BLOOD UREA NITROGEN 3 mg/dL (7-17); CALCIUM 8.8 mg/dl (8.6-10.4); GFR AFRICAN-AMERICAN > 60; GFR NON-AFRICAN AMERICAN > 60
--- NOTE | 2018-04-03 14:55 | CP.PCM.PN ---
Subjective - Date & Time of Evaluation Date of Evaluation: 04/03/18 Time of Evaluation: 14:53 - Subjective Subjective: Surgery Pt seen and examined. Pt underwent surgery yesterday and tolerated it well. Pain controlled with pain medicine. Had an episode of vomiting overnight. Now tolerating diet. + voiding. Ambulating. Objective - Vital Signs/Intake and Output Vital Signs (last 24 hours): Temp Pulse Resp BP Pulse Ox 98.1 F 58 L 18 117/68 97 04/03/18 09:25 04/03/18 12:58 04/03/18 09:25 04/03/18 09:25 04/03/18 09:25 Intake and Output: 04/03/18 04/03/18 06:59 18:59 Intake Total 1300 Balance 1300 - Medications Medications: Current Medications Acetaminophen (Tylenol 325mg Tab) 975 mg PO Q6 PRN PRN Reason: Fever >100.4 F Amlodipine Besylate (Norvasc) 10 mg PO DAILY [facility] Last Admin: 04/03/18 09:19 Dose: 10 mg Hydrochlorothiazide (Hydrodiuril) 25 mg PO DAILY [facility] Last Admin: 04/03/18 09:19 Dose: 25 mg Ceftriaxone Sodium (Rocephin Iv 1 Gm Duplex) 50 mls @ 100 mls/hr IVPB DAILY [facility] PRN Reason: Protocol Last Admin: 04/03/18 09:14 Dose: 100 mls/hr Lactated Ringer's (Lactated Ringer's) 1,000 mls @ 100 mls/hr IV .Q10H [facility] Last Admin: 04/03/18 08:40 Dose: Not Given Dextrose/Sodium Chloride (Dextrose 5%/0.45% Ns 1000 Ml) 1,000 mls @ 75 mls/hr IV .[id number] [facility] Last Admin: 04/03/18 09:22 Dose: 75 mls/hr Ketorolac Tromethamine (Toradol) 15 mg IVP Q6 PRN PRN Reason: Pain, severe (8-10) Levothyroxine Sodium (Synthroid) 75 mcg PO DAILY@0630 [facility] Last Admin: 04/03/18 06:22 Dose: 75 mcg Losartan Potassium (Cozaar) 50 mg PO QPM [facility] Last Admin: 04/02/18 19:55 Dose: 50 mg Oxycodone/Acetaminophen (Percocet 5/325 Mg Tab) 1 tab PO Q4H PRN PRN Reason: Pain, moderate (4-7) Stop: 04/05/18 12:32 Last Admin: 04/03/18 14:45 Dose: 1 tab Pantoprazole Sodium (Protonix Ec Tab) 40 mg PO DAILY [facility] Last Admin: 04/03/18 09:20 Dose: 40 mg - Labs Labs: 04/03/18 11:13 04/03/18 11:13 PT 13.9 SECONDS (9.7-12.2) H 03/31/18 06:18 INR 1.3 03/31/18 06:18 APTT 42 SECONDS (21-34) H 03/29/18 20:09 - Constitutional Appears: No Acute Distress - Head Exam Head Exam: ATRAUMATIC, NORMAL INSPECTION, NORMOCEPHALIC - Eye Exam Eye Exam: EOMI, Normal appearance, PERRL Pupil Exam: NORMAL ACCOMODATION, PERRL - ENT Exam ENT Exam: Mucous Membranes Moist, Normal Exam - Neck Exam Neck Exam: Full ROM, Normal Inspection. absent: Lymphadenopathy - Respiratory Exam Respiratory Exam: Clear to Ausculation Bilateral, NORMAL BREATHING PATTERN - Cardiovascular Exam Cardiovascular Exam: REGULAR RHYTHM, +S1, +S2. absent: Murmur - GI/Abdominal Exam GI & Abdominal Exam: Soft, Tenderness, Normal Bowel Sounds. absent: Distended, Firm, Guarding Additional comments: Epigatric TTP. Incision C/D/I - Exam Exam: NORMAL INSPECTION - Extremities Exam Extremities Exam: Full ROM, Normal Capillary Refill, Normal Inspection. absent : Joint Swelling, Pedal Edema - Back Exam Back Exam: NORMAL INSPECTION - Neurological Exam Neurological Exam: Alert, Awake, CN II-XII Intact, Normal Gait, Oriented x3 - Psychiatric Exam Psychiatric exam: Normal Affect, Normal Mood - Skin Skin Exam: Dry, Intact, Normal Color, Warm Assessment and Plan - Assessment and Plan (Free Text) Assessment: POD 1 s/p robotic lap abi Clear for DC for surgical standpoint Low fat diet Pain med PRN No heavyl ifting for 1 month Follow up at Dr. Flanagan's office in 1-[address] Flanagan
[2018-04-03 16:25] VITALS: BP 116/71; PULSE 69; RESP 20; TEMP 98.6; O2SAT 95
== END 2018-04-03 19:50 | disposition home or self-care (01) | DRG 493 ==
LOC: C.ER 19:21 → C.9E 21:00 → C.6T 21:48
PROVIDERS: ADMIT Internal Medicine; ATTEND Internal Medicine
PROC: 8E0W4CZ Robotic Assisted Procedure of Trunk Region, Percutaneous Endoscopic Approach (ICD-10-PCS; 2018-04-02)
PROC: 0FT44ZZ Resection of Gallbladder, Percutaneous Endoscopic Approach (ICD-10-PCS; principal; 2018-04-02 07:30)
DX: K85.10 Biliary acute pancreatitis without necrosis or infection (principal); K80.12 Calculus of gallbladder with acute and chronic cholecystitis without obstruction; E87.6 Hypokalemia; K86.0 Alcohol-induced chronic pancreatitis; E03.9 Hypothyroidism, unspecified; F31.9 Bipolar disorder, unspecified; I10 Essential (primary) hypertension; J70.5 Respiratory conditions due to smoke inhalation; K21.9 Gastro-esophageal reflux disease without esophagitis; K57.90 Diverticulosis of intestine, part unspecified, without perforation or abscess without bleeding; T59.811A Toxic effect of smoke, accidental (unintentional), initial encounter; K86.1 Other chronic pancreatitis; F10.20 Alcohol dependence, uncomplicated; E78.00 Pure hypercholesterolemia, unspecified; H91.90 Unspecified hearing loss, unspecified ear